=== PATIENT | female | born 1990 ===

== ENCOUNTER 2021-07-03 17:27 | Outpatient (REF) | payer BC, SELFPAY | END 2021-07-03 17:28 | disposition home or self-care (01) | LOC: HO.LNP 17:27 | PROVIDERS: Visit Provider Nurse Practitioner Family | DX: R10.2 Pelvic and perineal pain (principal); R10.9 Unspecified abdominal pain | CPT/HCPCS: 87086 ==

== ENCOUNTER 2021-07-05 16:59 | Outpatient (REF) | payer BC, SELFPAY ==
[2021-07-05 17:15] LABS: MANUAL DIFF FLAG NO
[2021-07-05 17:42] LABS: Basophils Percent Auto 0.4 % (0-2); Eosinophils Absolute Auto 0.2 X10*3/uL (0.0-0.4); Eosinophils Percent Auto 2.2 % (0-4); Hemoglobin 13.5 g/dl (12.0-16.0); Imm Gran Abs Auto 0.01 X10*3/uL (0.00-0.03); Imm Gran Pct Auto 0.1 % (0.0-0.4); Lymphocytes Absolute Auto 3.6 X10*3/uL (1.2-4.9); Lymphocytes Percent Auto 47.6 % (20-40); Mean Corpuscular HGB Conc 33.8 g/dl (31.0-35.0); Mean Corpuscular Hemoglobin 31.9 pg (27.0-33.0); Mean Corpuscular Volume 94.6 fL (80.0-98.0); Mean Platelet Volume 10.9 fL (9.4-12.3); Monocytes Absolute Auto 0.6 X10*3/uL (0.1-1.2); Neutrophils Absolute Auto 3.2 x10*3/uL (2.0-8.3); Neutrophils Percent Auto 41.7 % (45-73); Platelet Count 248 X10*3/uL (160-400); Red Blood Count 4.23 X10*6/uL (4.20-5.50); Red Cell Distribution Width 12.1 % (11.0-16.0); White Blood Count 7.6 X10*3/uL (4.8-10.8)
[2021-07-05 18:14] LABS: Alanine Aminotransferase 19 U/L (0-31); Alkaline Phosphatase 69 U/L (39-117); Anion Gap 9 (12-20); Aspartate Amino Transferase 15 U/L (5-31); Bilirubin Total 0.5 mg/dL (0.0-1.0); Blood Urea Nitrogen 13 mg/dL (9-16); Calcium 9.6 mg/dL (8.4-10.2); Carbon Dioxide 28 mmol/L (22-29); Chloride 105 mmol/L (96-108); Estimated Glomerular Filt Rate > 60; Glucose Random 98 mg/dL (60-115); Lipase 15 U/L (8-78); Potassium 4.7 mmol/L (3.3-5.1); Sodium 137 mmol/L (135-145); Total Protein 6.9 g/dL (6.5-8.0)
[2021-07-05 18:25] LABS: TSH reflex Free T4 1.18 uIU/mL (0.32-4.0)
== END 2021-07-05 17:00 | disposition home or self-care (01) ==
LOC: HO.LAB 16:59
PROVIDERS: PCP Internal Medicine; Visit Provider Nurse Practitioner Family
DX: R10.9 Unspecified abdominal pain (principal); Z13.29 Encounter for screening for other suspected endocrine disorder
CPT/HCPCS: 36415; 80053; 83690; 84443; 85025

== ENCOUNTER 2021-08-01 14:42 | Outpatient (REF) | payer BC, SELFPAY | END 2021-08-01 14:43 | disposition home or self-care (01) | LOC: HO.LAB 14:42 | PROVIDERS: PCP Internal Medicine; Visit Provider Nurse Practitioner Family | DX: Z13.89 Encounter for screening for other disorder (principal) | CPT/HCPCS: 87086 ==

== ENCOUNTER 2021-08-07 09:03 | Outpatient (REF) | payer BC, SELFPAY ==
--- NOTE | ~2021-08-07 | US_ITS ---
EXAMINATION: US RETROPERITONEAL LIMITED (RENAL ONLY) CLINICAL INFORMATION: Left lateral abdominal pain, history of kidney stones. COMPARISON: CT abdomen and pelvis with contrast 03/09/2016. TECHNIQUE: Real-time imaging of the kidneys. FINDINGS: RIGHT KIDNEY: 9.7 x 3.7 x 5.2 cm (SAG x AP x TRV). The kidney is normal in size, contour, and echogenicity. Renal cortical thickness is normal. No calculi or focal parenchymal lesions. No hydronephrosis. LEFT KIDNEY: 10.9 x 5.8 x 4.6 cm (SAG x AP x TRV). The kidney is normal in size, contour, and echogenicity. Renal cortical thickness is normal. No focal parenchymal lesions or hydronephrosis. There is a 0.3 cm calculus in the lower pole and a 0.3 cm calculus in the lower pole. US/US renal BI IMPRESSION: Nonobstructive 0.3 cm calculi in the left kidney.
--- NOTE | ~2021-08-07 | US_ITS ---
EXAMINATION: US PELVIS CLINICAL INFORMATION: Pelvic and perineal pain. LMP 08/01/2021. COMPARISON: CT abdomen/pelvis dated from 03/09/2016. TECHNIQUE: Ultrasound of the pelvis is performed using both transabdominal and transvaginal transducers along with Doppler. Transvaginal imaging is performed due to inadequate visualization transabdominally. FINDINGS: Uterus: The uterus is anteverted and measures 9.1 x 5.0 x 5.9 cm. Small nabothian cysts overlie the cervix. The double wall endometrial thickness is 4 mm. The uterus is smooth in contour and has normal myometrial echogenicity. No visible fibroid. Adnexa: Both ovaries are visualized. There is normal color flow to the adnexa. There is no ovarian torsion. There is no pelvic ascites or fluid collection. Right ovary measures 3.8 x 2.2 x 1.9 cm. There is a 1.4 cm simple cyst for which no imaging follow-up is recommended. Left ovary measures 2.2 x 1.6 x 1.4 cm. US/US pelvic and transvaginal IMPRESSION: No acute sonographic abnormalities to explain the patient's symptoms. If these persist, correlation with a different imaging modality such as CT or MR is recommended.
== END 2021-08-07 09:04 | disposition home or self-care (01) ==
LOC: HO.HMGCX 09:03
PROVIDERS: PCP Internal Medicine; Visit Provider Nurse Practitioner Family
DX: R10.2 Pelvic and perineal pain (principal); Z87.442 Personal history of urinary calculi
CPT/HCPCS: 76775; 76830; 76856

== ENCOUNTER 2022-03-05 04:30 | Emergency (ER) | payer BC, SELFPAY ==
--- NOTE | ~2022-03-05 | XR_ITS ---
EXAMINATION: XR ABDOMEN KUB CLINICAL INDICATION: Flank pain COMPARISON: Previous CT of the abdomen and pelvis February 2016 TECHNIQUE: AP view of the abdomen. FINDINGS: 2 mm density projecting over the lower pole of the left kidney probably representing a stone. Multiple bilateral pelvic calcifications largest measuring 3 mm probably representing calcified phleboliths. Normal bowel gas pattern. Bony structures are unremarkable. XR/XR KUB IMPRESSION: Small left lower pole renal stone.
[2022-03-05 04:36] VITALS: BP 109/72; PULSE 97; RESP 18; TEMP 36.7; O2SAT 97; BMI 24.0
[2022-03-05 05:07] LABS: Hematocrit 43.7 % (37.0-47.0); Hemoglobin 14.8 g/dl (12.0-16.0); Mean Corpuscular HGB Conc 33.9 g/dl (31.0-35.0); Mean Corpuscular Hemoglobin 31.4 pg (27.0-33.0); Mean Corpuscular Volume 92.8 fL (80.0-98.0); Mean Platelet Volume 9.8 fL (9.4-12.3); Platelet Count 317 X10*3/uL (160-400); Red Blood Count 4.71 X10*6/uL (4.20-5.50); Red Cell Distribution Width 12.2 % (11.0-16.0); White Blood Count 14.5 X10*3/uL (4.8-10.8)
[2022-03-05 05:26] LABS: Alanine Aminotransferase 25 U/L (0-31); Albumin Level 4.5 g/dL (3.5-5.0); Alkaline Phosphatase 86 U/L (39-117); Anion Gap 15 (12-20); Aspartate Amino Transferase 20 U/L (5-31); Blood Urea Nitrogen 18 mg/dL (9-16); Calcium 9.5 mg/dL (8.4-10.2); Carbon Dioxide 23 mmol/L (22-29); Chloride 105 mmol/L (96-108); Creatinine Clr Calc Pharmacy 84.5; Estimated Glomerular Filt Rate > 60; Glucose Random 126 mg/dL (60-115); Potassium 4.5 mmol/L (3.3-5.1); Sodium 138 mmol/L (135-145); Total Protein 7.8 g/dL (6.5-8.0)
[2022-03-05 05:44] LABS: Influenza A PCR NEGATIVE (Negative); Influenza B PCR NEGATIVE (Negative); Resp Syncy Virus RNA Qual PCR NEGATIVE (Negative); SARS COV2 PCR INHOUSE NEGATIVE (Negative)
[2022-03-05 07:53] LABS: HCG Quantitative < 2 mIU/mL
--- NOTE | 2022-03-05 09:28 | PC.NURSE ---
l abd and flank pain, hx colitis and kidney stones, ua collected, skin wpd, pain7/10, xray done
--- NOTE | 2022-03-05 09:40 | ED.NAVMDI ---
HPI - Nausea/Vomiting/Diarrhea General Chief complaint: Nausea/Vomiting/Diarrhea Stated complaint: dizzy, vomitting diarrhea, chills Time Seen by Provider: 03/05/22 08:57 Source: patient Mode of arrival: ambulatory History of Present Illness HPI Narrative: 31-year-old female who is currently menstruating and has a history of asthma presents with left flank pain and multiple episodes of nausea, vomiting, diarrhea and states that this did start after she ate some food but states that her significant other also ate the same meal. She otherwise denies any fever or chills and has a positive history of renal colic. Related Data Home Medications Medication Instructions Recorded Confirmed prenat.vits,justin,[id number] 1 tab PO DAILY 07/03/21 08/23/21 Previous Rx's Medication Instructions Recorded ketorolac 10 mg tablet 10 mg PO Q6H PRN pain 5 days #20 03/05/22 tabs ondansetron 4 mg disintegrating 4 mg PO Q8H PRN nausea and 03/05/22 tablet vomiting #10 tabs tamsulosin 0.4 mg capsule (Flomax) 0.4 mg PO BEDTIME #4 caps 03/05/22 Allergies Allergy/AdvReac Type Severity Reaction Status Date / Time No Known Allergies Allergy Verified 10/13/21 14:04 Review of Systems Review of Systems: Pertinent positives and negatives as stated in HPI. PMF Past Medical History Source: nursing notes reviewed Medical History History of nephrolithiasis Surgical History No pertinent past surgical history Social History Social History Housing: House Alcohol intake: never Patient Tobacco Use Status: Never used Tobacco e-Cigarette/Vaping Use: Never Used Second Hand Smoke Exposure: Yes Advance Directives: No Advance Directives Information Provided: Yes service: No Current occupational status: employed Cognitive needs: No Hearing needs: No Vision needs: No Physical Exam Vital Signs: Vital Signs: Last Vital Signs Temp 98.0 F 03/05/22 04:36 Pulse 97 03/05/22 04:36 Resp 18 03/05/22 04:36 BP 109/72 03/05/22 04:36 Pulse Ox 97 03/05/22 04:36 O2 Del Method 03/05/22 04:36 BMI result Body Mass Index 24.0 VITAL SIGNS: Reviewed. GENERAL: Well developed, well nourished, in no acute distress. HEAD: Normocephalic/atraumatic EYES: PERRLA, EOMI EARS: Ext canals without abnormality OROPHARYNX: no oral lesions noted, posterior pharynx clear LUNGS: Normal breath sounds. No adventitious sounds or accessory muscle use. SpO2<97> CARDIOVASCULAR: Regular rate and rhythm without noted murmurs ABDOMEN: Soft, non-tender, non-distended with bowel sounds, left CVA tenderness MUSCULOSKELETAL: No tenderness, deformities, or effusions noted on gross inspection. EXTREMITIES: No cyanosis, clubbing or edema. SKIN: Inspection of the skin reveals no rashes NEUROLOGIC: Alert and oriented x 4. Strength and sensation to light touch were grossly intact x 4. Course Course Course Narrative: I reviewed all laboratory investigations and although patient has a leukocytosis this is felt to be primarily due stress/reactive response with the vomiting. Patient is not febrile, urine does not appear to be infected in his instead reflective of current menstrual bleeding. And on re-evaluation patient is feeling better although she states she is tired due to her symptoms. She states her pain has significantly improved after the medication she received and the IV fluids that were ordered for this patient have completed. Patient is tolerating oral intake. Medications Administered Discontinued Medications Generic Name Dose Route Start Last Admin Trade Name Freq PRN Reason Stop Dose Admin Acetaminophen 975 mg 03/05/22 09:39 03/05/22 09:54 Acetaminophen 325 Mg Tablet PO 03/05/22 09:40 975 mg ONCE ONE Administration Sodium Chloride 1,000 mls @ 999 mls/hr 03/05/22 09:45 03/05/22 09:54 Ns IV 03/05/22 10:45 999 mls/hr .Q1H1M TANYA Administration Ketorolac Tromethamine 15 mg 03/05/22 09:41 03/05/22 09:54 Ketorolac Tromethamine 30 Mg/Ml Vial IVPUSH 03/05/22 09:42 15 mg ONCE ONE Administration Ondansetron HCl 4 mg 03/05/22 09:41 03/05/22 09:54 Ondansetron Hcl 4 Mg/2 Ml Vial IVPUSH 03/05/22 09:42 4 mg ONCE ONE Administration Medical Decision Making Medical Decision Making [facility] Narrative: 31-year-old female with multiple episodes of nausea, vomiting, diarrhea as well as left flank/CVA pain and no urinary symptoms. Differential Diagnosis Differential Diagnoses: The differential diagnosis associated with the presentation includes Food poisoning, gastroenteritis, renal colic, pyelonephritis, Lab Data [facility] Lab Attestation statement: I reviewed the patient's lab results. Please see the course Section for discussion Result Diagrams: 03/05/22 05:02 03/05/22 05:02 Labs: Lab Results 03/05/22 03/05/22 03/05/22 Range/Units 05:00 05:02 05:02 WBC 14.5 H (4.8-10.8) X10*3/uL RBC 4.71 (4.20-5.50) X10*6/uL Hgb 14.8 (12.0-16.0) g/dl Hct 43.7 (37.0-47.0) % MCV 92.8 (80.0-98.0) fL MCH 31.4 (27.0-33.0) pg MCHC 33.9 (31.0-35.0) g/dl RDW 12.2 (11.0-16.0) % Plt Count 317 D (160-400) X10*3/uL MPV 9.8 (9.4-12.3) fL Absolute Nucleated RBC 0.000 (0.0-0.012) X10*3/uL Nucleated RBC % (auto) 0.0 (0.0-0.2) /100WBC Sodium 138 (135-145) mmol/L Potassium 4.5 (3.3-5.1) mmol/L Chloride 105 (96-108) mmol/L Carbon Dioxide 23 (22-29) mmol/L Anion Gap 15 (12-20) BUN 18 H (9-16) mg/dL Creatinine 0.78 (0.5-1.4) mg/dL Estim Creat Clear Calc 84.5 Estimated GFR > 60 Random Glucose 126 H (60-115) mg/dL Calcium 9.5 (8.4-10.2) mg/dL Total Bilirubin 1.0 (0.0-1.0) mg/dL AST 20 (5-31) U/L ALT 25 (0-31) U/L Alkaline Phosphatase 86 D (39-117) U/L Total Protein 7.8 (6.5-8.0) g/dL Albumin 4.5 (3.5-5.0) g/dL Beta HCG, Quant < 2 mIU/mL Urine Color Urine Appearance Urine pH (5.0-9.0) Ur Specific [place] (1.005-1.025) Urine Protein (Neg-Trace) mg/dL Urine Glucose (UA) (Negative) mg/dL Urine Ketones (Negative) mg/dL Urine Blood (Negative) Urine Nitrite (Negative) Ur Leukocyte Esterase (Negative) Urine RBC (0-2) /HPF Urine WBC (0-5) /HPF Ur Squamous Epith Cells (0-2) /HPF Urine Bacteria (None Seen) Hyaline Casts (0-2) /LPF Influenza Type A (PCR) NEGATIVE (Negative) Influenza Type B (PCR) NEGATIVE (Negative) RSV RNA Qual (PCR) NEGATIVE (Negative) SARS-CoV-2 RNA (RT-PCR) NEGATIVE (Negative) 03/05/22 Range/Units 09:43 WBC (4.8-10.8) X10*3/uL RBC (4.20-5.50) X10*6/uL Hgb (12.0-16.0) g/dl Hct (37.0-47.0) % MCV (80.0-98.0) fL MCH (27.0-33.0) pg MCHC (31.0-35.0) g/dl RDW (11.0-16.0) % Plt Count (160-400) X10*3/uL MPV (9.4-12.3) fL Absolute Nucleated RBC (0.0-0.012) X10*3/uL Nucleated RBC % (auto) (0.0-0.2) /100WBC Sodium (135-145) mmol/L Potassium (3.3-5.1) mmol/L Chloride (96-108) mmol/L Carbon Dioxide (22-29) mmol/L Anion Gap (12-20) BUN (9-16) mg/dL Creatinine (0.5-1.4) mg/dL Estim Creat Clear Calc Estimated GFR Random Glucose (60-115) mg/dL Calcium (8.4-10.2) mg/dL Total Bilirubin (0.0-1.0) mg/dL AST (5-31) U/L ALT (0-31) U/L Alkaline Phosphatase (39-117) U/L Total Protein (6.5-8.0) g/dL Albumin (3.5-5.0) g/dL Beta HCG, Quant mIU/mL Urine Color Yellow Urine Appearance Clear Urine pH 6.0 (5.0-9.0) Ur Specific [place] >= 1.030 H (1.005-1.025) Urine Protein Trace (Neg-Trace) mg/dL Urine Glucose (UA) Negative (Negative) mg/dL Urine Ketones 40 (Negative) mg/dL Urine Blood Moderate (2+) H (Negative) Urine Nitrite Negative (Negative) Ur Leukocyte Esterase Small (1+) H (Negative) Urine RBC 3-5 H (0-2) /HPF Urine WBC 11-20 H (0-5) /HPF Ur Squamous Epith Cells 6-10 (0-2) /HPF Urine Bacteria 3+ (None Seen) Hyaline Casts 0-2 (0-2) /LPF Influenza Type A (PCR) (Negative) Influenza Type B (PCR) (Negative) RSV RNA Qual (PCR) (Negative) SARS-CoV-2 RNA (RT-PCR) (Negative) Radiology Impression Radiologist Impression: My interpretation is in agreement with radiology impression of imaging studies. External Record Review External record reviewed: Outpatient record Discharge Plan Discharge Clinical Impression: Renal colic, Dehydration Patient Disposition: Home, Self-Care Instructions: Dehydration (ED), Renal Colic (ED) Additional Instructions: 1. Resume all home medications as prescribed. Continue to drink plenty of water. And avoid all caffeinated and carbonated beverages. 2. Tylenol 1000 g, orally, every 6 hours as needed for pain control. Do not exceed 4000 mg within 24 hours. 3. I have given you a referral follow-up with urology. 4. Follow-up with primary care provider in the next 2-3 days for re-evaluation and further outpatient management. Return to the emergency room for any worsening of symptoms. Prescriptions: New ondansetron 4 mg tablet,disintegrating 4 mg PO Q8H PRN (Reason: nausea and vomiting) Qty: 10 0RF tamsulosin [Flomax] 0.4 mg capsule 0.4 mg PO BEDTIME Qty: 4 0RF ketorolac 10 mg tablet 10 mg PO Q6H PRN (Reason: pain) 5 Days Qty: 20 0RF Rx Instructions: Patient received Toradol in the emergency room. No Action prenat.vits,justin,[id number] Tablet 1 tab PO DAILY Referrals: Tavo Armendariz MD [Primary Care Provider] - Annette Walters MD [Physician] - (History renal colic, stone on left via KUB, pain and nausea/vomiting resolved and sent home on analgesics and Flomax.) Stand Alone Forms: Work/School Release
[2022-03-05 09:53] LABS: Appearance Urine Clear; Color Urine Yellow; Glucose Urine UA Negative (Negative); Leukocyte Esterase Urine Small (1+) (Negative); Nitrite Urine Negative (Negative); Specific Gravity - Urine >= 1.030 (1.005-1.025); UMIC TRIGGER UACC YES; Urine Blood Moderate (2+) (Negative); Urine Ketones 40 mg/dL (Negative); Urine Protein Trace mg/dL (Neg-Trace)
[2022-03-05] MEDS: Ketorolac Tromethamine 30 MG/ML VIAL 15 MG IVPUSH (09:54)
[2022-03-05] MEDS: ondansetron HCL 4 MG/2 ML VIAL IVPUSH (09:54)
[2022-03-05] MEDS: Acetaminophen 325 MG TABLET 975 MG PO (09:54)
[2022-03-05] MEDS: 0.9 % Sodium Chloride 1,000 ML 999 ML IV (09:54)
[2022-03-05 10:02] LABS: Bacteria Urine 3+ (None Seen); Hyaline Casts Urine 0-2 /LPF (0-2); UACC Culture Trigger YES
[2022-03-05 11:43] VITALS: BP 95/46; PULSE 94; RESP 16; O2SAT 100
== END 2022-03-05 11:44 | disposition home or self-care (01) ==
PROVIDERS: Emergency Provider Student in an Organized Health Care Education/Training Program; PCP Internal Medicine
DX: E86.0 Dehydration (principal); R19.7 Diarrhea, unspecified; R42 Dizziness and giddiness; N23 Unspecified renal colic; Z20.822 Contact with and (suspected) exposure to COVID-19; Z79.899 Other long term (current) drug therapy
CPT/HCPCS: 0241U; 74018; 80053; 81001; 84702; 85027; 87086; 96374; 96375; 99284; J1885; J2405

== ENCOUNTER 2022-03-19 14:47 | Outpatient (REF) | payer BC, SELFPAY ==
--- NOTE | ~2022-03-19 | US_ITS ---
EXAMINATION: US RETROPERITONEAL LIMITED (RENAL ONLY) CLINICAL INFORMATION: Renal stones. COMPARISON: X-ray KUB 03/05/2022. Ultrasound renal 08/07/2021. CT abdomen pelvis 03/09/2016. TECHNIQUE: Real-time imaging of the kidneys. FINDINGS: RIGHT KIDNEY: 9.9 x 4.1 x 5.6 cm (SAG x AP x TRV). The kidney is normal in size, contour, and echogenicity. Renal cortical thickness is normal. No calculi or focal parenchymal lesions. No hydronephrosis. LEFT KIDNEY: 9.9 x 5.8 x 4.5 cm (SAG x AP x TRV). The kidney is normal in size, contour, and echogenicity. Renal cortical thickness is normal. No focal parenchymal lesions or hydronephrosis. Stable nonobstructing 3 mm low pole stone. US/US renal BI IMPRESSION: Stable nonobstructing 3 mm left lower pole renal stone.
== END 2022-03-19 14:48 | disposition home or self-care (01) ==
LOC: HO.HMGCX 14:47
PROVIDERS: PCP Internal Medicine; Visit Provider Urology
DX: Z13.89 Encounter for screening for other disorder (principal)
CPT/HCPCS: 76775

== ENCOUNTER → 2022-04-02 13:44 | Outpatient (BNVA) | payer BC, SELFPAY | PROVIDERS: PCP Internal Medicine; Visit Provider Nurse Practitioner Family | DX: Z13.89 Encounter for screening for other disorder (principal) ==

== ENCOUNTER 2022-09-11 10:11 | Outpatient (REF) | payer BC, SELFPAY ==
--- NOTE | ~2022-09-11 | US_ITS ---
EXAMINATION: US RETROPERITONEAL LIMITED (RENAL ONLY) CLINICAL INFORMATION: Calculus of kidney. COMPARISON: Renal ultrasound 03/19/2022 and 08/07/2021. X-ray abdomen KUB 03/05/2022. CT abdomen and pelvis 03/09/2016. TECHNIQUE: Real-time imaging of the kidneys. Limited visualization due to bowel gas and body habitus. FINDINGS: RIGHT KIDNEY: 9.9 x 4.2 x 6.0 cm (SAG x AP x TRV). No hydronephrosis. No renal calculi. Limited visualization. Renal cortical thickness is normal. LEFT KIDNEY: 10.5 x 5.4 x 4.8 cm (SAG x AP x TRV). No hydronephrosis. Limited visualization. 0.3 cm calculus lower pole left kidney. Renal cortical thickness is normal. US/US renal BI IMPRESSION: Stable 3 mm nonobstructing calculus lower pole left kidney. No hydronephrosis.
--- NOTE | ~2022-09-11 | XR_ITS ---
EXAMINATION: XR WRIST, LEFT CLINICAL INFORMATION: Pain. COMPARISON: None available. TECHNIQUE: PA, lateral, and oblique views of the left wrist. FINDINGS: There is foreshortening of the fifth and, to a lesser extent fourth metacarpal bones. The proximal and distal carpal rows are intact. There is a neutral ulnar variance. No fracture, dislocation or unusual degenerative change is seen. There is no abnormal bone erosion. No focal soft tissue swelling, gas or foreign body is seen. XR/XR wrist LT min 3V IMPRESSION: 1. No fracture, dislocation or unusual degenerative change is seen. 2. 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 This can be idiopathic and further etiologies may include prior infection, trauma, pseudohypoparathyroidism, pseudopseudohypoparathyroidism and Guillen's syndrome.
== END 2022-09-11 10:12 | disposition home or self-care (01) ==
LOC: HO.HMGCX 10:11
PROVIDERS: Absent Provider Internal Medicine; PCP Internal Medicine; Visit Provider Nurse Practitioner Family
DX: Z00.00 Encounter for general adult medical examination without abnormal findings (principal); E78.00 Pure hypercholesterolemia, unspecified; R11.0 Nausea; N92.6 Irregular menstruation, unspecified; N20.0 Calculus of kidney; R30.0 Dysuria; M25.532 Pain in left wrist; E55.9 Vitamin D deficiency, unspecified
CPT/HCPCS: 36415; 73110; 76775; 80053; 80061; 81001; 82306; 84443; 84702; 85025; 87086

== ENCOUNTER 2022-09-30 15:03 | Outpatient (AMB) | payer BC, SELFPAY ==
--- NOTE | 2022-09-30 15:21 | A.OFFVIS_ITS ---
Intake Intake Visit Reasons: 6m follow up/US(set) Intake Note: Patient presents for follow up kidney stone/ultrasound (imaging 09/18) Urology Medications: none Blood Thinner: none Traveling Construction Superintendent Required: No Accompanied by: Self / Same As Patient Allergies No Known Allergies Allergy (Verified 09/30/22 19:54) Medication List - Last Reconciled 09/30/22 by CHARO Cespedes pyridoxine (vitamin B6) 100 mg PO DAILY 90 days HPI HPI Comments History of Present Illness Details Tata is a pleasant 31-year-old female patient of . She presents to the office today for follow-up regarding her nephrolithiasis. When asked patient reports to be doing well. Recent renal imaging reviewed with the patient today. Stable nonobstructing 3 mm left lower pole renal stone. Patient denies urinary issues or concerns at this time. Patient denies hematuria, flank pain, pain, fever, and or chills. Discussed and encouraged to continue drinking adequate amount of daily fluid intake. Discussed adding 1 oz of lemon juice to water. In office urinalysis results reviewed with the patient today. Patient reports to be following up with nurse gynecology regarding intermittent left lower abdominal pain. She otherwise offers no issues or concerns at this time. [facility] Medical History History of nephrolithiasis Surgical History No pertinent past surgical history Social History Housing: House Alcohol intake: never Patient Tobacco Use Status: Never used Tobacco e-Cigarette/Vaping Use: Never Used Second Hand Smoke Exposure: Yes service: No Current occupational status: employed Cognitive needs: No Hearing needs: No Vision needs: No Review of Systems Const All systems reviewed & are unremarkable except as noted in HPI and below Reports as per HPI Eyes Reports no additional complaints ENT Reports no additional complaints Card Reports no additional complaints Resp Reports no additional complaints GI Reports no additional complaints Reports as per HPI Musc Reports no additional complaints Neuro Reports no additional complaints Psych Reports no additional complaints Endo Reports no additional complaints Trevor/Lymph Reports no additional complaints Aller/Immun Reports no additional complaints Physical Exam Const General: cooperative, healthy appearing, comfortable, no acute distress, well developed, alert and awake Nutritional Appearance: average body habitus Orientation/consciousness: patient oriented x3 Limitations: no limitations HEENT Head: Yes normal to inspection, Yes normocephalic and Yes atraumatic Ears: hearing grossly normal bilaterally Eyes General: appearance normal, both eyes and all related structures Neck Neck: Yes normal visual inspection and Yes trachea midline Chest Chest palpation & inspection: normal inspection of the chest Resp Effort & Inspection: normal respiratory effort and able to speak in complete sentences Cardio Rate: regular rate GI Inspection: Yes normal to inspection General: Yes no CVA tenderness Back/Spine/Pelvis Back: no CVA tenderness Cervical Spine: normal cervical lordosis Skin General skin exam: no rashes or lesions noted Neuro General: patient oriented x3 Extrem General: Yes normal to inspection and Yes full ROM Psych Appearance: grossly normal Mental Status: mental status grossly normal Speech and movement: Normal speech and movement present and Clear speech present Affect: normal affect Attitude: cooperative Thought process: Normal thought process present Thought content: Normal thought content present Insight: Good insight present (Psych) Judgement: Good judgement present (Psych) Results AMB Urinalysis, Automated UA Leukoctes 500 Srikanth/uL Last Edit by [email or web address] on 09/30/22 15:51 UA Nitrite Last Edit by [email or web address] on 09/30/22 15:51 UA Urobilinogen 0.2 mg/dL Last Edit by [email or web address] on 09/30/22 15:51 UA Protein 0 mg/dL Last Edit by [email or web address] on 09/30/22 15:51 UA pH 6.0 Last Edit by [email or web address] on 09/30/22 15:51 UA Blood 0 Shaheen/uL Last Edit by [email or web address] on 09/30/22 15:51 UA Specific [place] 1.025 Last Edit by [email or web address] on 09/30/22 15:51 UA Ketone Negative Last Edit by [email or web address] on 09/30/22 15:51 UA Bilirubin 0 mg/dL Last Edit by [email or web address] on 09/30/22 15:51 UA Glucose 0 mg/dL Last Edit by [email or web address] on 09/30/22 15:51 Results Reviewed Results Reviewed: Laboratory Last Values Urine pH (Auto) 6.0 09/30/22 15:22 Specific [place] (Auto) 1.025 09/30/22 15:22 Urine Protein (Auto) 0 mg/dL 09/30/22 15:22 Glucose (UA)(Auto) 0 mg/dL 09/30/22 15:22 Urine Ketones (Auto) Negative 09/30/22 15:22 Urine Blood (Auto) 0 Shaheen/uL 09/30/22 15:22 Urine Bilirubin (Auto) 0 mg/dL 09/30/22 15:22 Urine Urobilinogen (Auto) 0.2 mg/dL 09/30/22 15:22 Leukocyte Esterase (Auto) 500 Srikanth/uL 09/30/22 15:22 Date of Service: 09/11/22 EXAMINATION: US RETROPERITONEAL LIMITED (RENAL ONLY) FINDINGS: RIGHT KIDNEY: 9.9 x 4.2 x 6.0 cm (SAG x AP x TRV). No hydronephrosis. No renal calculi. Limited visualization. Renal cortical thickness is normal. LEFT KIDNEY: 10.5 x 5.4 x 4.8 cm (SAG x AP x TRV). No hydronephrosis. Limited visualization. 0.3 cm calculus lower pole left kidney. Renal cortical thickness is normal. IMPRESSION: Stable 3 mm nonobstructing calculus lower pole left kidney. No hydronephrosis. Assessment & Plan Assessment & Plan (1) Renal calculi: Code(s): N20.0 - Calculus of kidney Plan In office urinalysis results reviewed with the patient today; as noted above. Recent renal imaging results reviewed with the patient today; as noted above. Patient reports to be happy with current voiding parameters. Patient denies any urological issues or concerns at this time. Start vitamin B6 as discussed and prescribed. Educated, instructed, and encouraged on the importance of drinking plenty of water daily. Discussed continuation of adding 1 oz of lemon juice to water daily. Renal ultrasound in 1 year. Follow-up in 1 year with imaging to be completed prior; or sooner with any issues, concerns, and or questions. Orders: Orders US renal BI 364 Days N20.0 - Calculus of kidney AMB Urinalysis Automated Today Z13.9 - Encounter for screening, unspecified Medications: New pyridoxine (vitamin B6) 100 mg PO DAILY 90 tabs 1RF 90 days N20.0 - Calculus of kidney Patient Instructions: The patient had an opportunity to ask questions regarding the treatment plan. All questions were answered. Physical exam, labs, and imaging were discussed and reviewed in detail. As well as risks, benefits, and discussion of treatment choices. No major barriers to understanding were identified. The patient expressed understanding and agreement with the above treatment plan. The patient was made aware they should contact our office by phone for worsening of their current condition, the appearance of new symptoms, or with any questions or concerns. Compliance is encouraged with any medications and follow up testing that is ordered. It is a privilege to be allowed the opportunity to participate in? your urological care.? Again, if you have any questions or concerns If you have any questions or concerns please do not hesitate to contact me. The office is [phone]. This note is constructed using voice recognition software. While every effort has been made to ensure accuracy gridcap machine operator errors may have been included. Yours sincerely, CHARO Cespedes Coding Level of Care Code Est Pt Level 4 (09225) Diagnoses Renal calculi N20.0
== END 2022-09-30 16:04 | disposition home or self-care (01) ==
PROVIDERS: Visit Provider Nurse Practitioner Family
DX: N20.0 Calculus of kidney (principal)
CPT/HCPCS: 99214

== ENCOUNTER → 2022-09-30 15:03 | Outpatient (BNVA) | payer BC, SELFPAY | PROVIDERS: Visit Provider Nurse Practitioner Family ==

== ENCOUNTER 2022-11-04 13:47 | Outpatient (REF) | payer BC, SELFPAY ==
--- NOTE | ~2022-11-04 | XR_ITS ---
EXAMINATION: XR HAND, LEFT CLINICAL INFORMATION: Pain in left hand. COMPARISON: Radiographs of the wrist from 09/11/2022 TECHNIQUE: PA, lateral, and oblique views of the left hand. FINDINGS: The bones have normal alignment within the hand or wrist. The joint spaces are maintained. No acute fracture, subluxation or focal soft tissue swelling. No erosions, periostitis or dystrophic calcifications. Again noted is a chronically shortened fifth metacarpal, a nonspecific finding that can be seen as a sequela of remote trauma, although differential diagnosis includes a variety of disorders, e.g., Guillen's syndrome. XR/XR hand LT min 3V IMPRESSION: * No acute osseous injury in the left hand or wrist. No specific source of pain is identified. * No evidence of an inflammatory arthropathy. 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
== END 2022-11-04 13:48 | disposition home or self-care (01) ==
LOC: HO.HOSX 13:47
PROVIDERS: Visit Provider Orthopaedic Surgery
DX: M79.642 Pain in left hand (principal)
CPT/HCPCS: 73130

== ENCOUNTER 2022-11-05 14:14 | Outpatient (AMB) | payer BC, SELFPAY ==
[2022-11-05 14:39] VITALS: BMI 23.8
--- NOTE | 2022-11-05 14:39 | MHC.OFFVIS ---
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 States she is experiencing pain when applying pressure to her hand/wrist for the last 5-6 months. No injury she van recall. States she saw her PCP about 1 month ago who ordered xrays. Currently states her pain has been constant and affects her daily living even just going to the gym. At time she has a sharp pain in her dorsum aspect of wrist. Denies numbness, tingling , locking of finger or prior treatment. Allergies No Known Allergies Allergy (Verified 11/05/22 14:49) HPI KEY ACCOUNT MANAGER-left wrist pain HPI Details Tata is a 32 year old right hand dominant woman who presents to discuss her left wrist pain She complains of ~6 months left wrist pain with activity. She says this has worsened over the last month and is now felt constantly with daily activity. She says she feels limited in her ADLs due to this pain. Pushing up with her hand is particularly painful for her. She feels worsening pain when applying pressure to her wrist. At times she feels a sharp pain in the dorsal aspect of her wrist. She says at times she feels her wrist catches and she has to make her wrist click in order to continue moving it, this clicking relieves her pain temporarily. She denies any falls or known injury. She denies any numbness or tingling. 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 [facility] Medical History History of nephrolithiasis Surgical History No pertinent past surgical history Social History (Updated 11/05/22 @ 14:50 by Connie Weaver [facility]) Housing: House Alcohol intake: never Patient Tobacco Use Status: Never used Tobacco e-Cigarette/Vaping Use: Never Used Second Hand Smoke Exposure: Yes service: No Current occupational status: employed Current occupation: rt hand / banker Cognitive needs: No Hearing needs: No Vision needs: No Review of Systems Const All systems reviewed & are unremarkable except as noted in HPI and below Physical Exam Vital Signs: BMI result Body Mass Index 23.8 Const General: cooperative, healthy appearing and no acute distress Orientation/consciousness: patient oriented x3 HEENT Head: Yes normocephalic and Yes atraumatic Eyes EOM: EOMs intact bilaterally Resp Effort & Inspection: normal respiratory effort and able to speak in complete sentences Cardio Jugular venous distension: no JVD Skin General skin exam: turgor normal Rashes: no rashes Neuro General: patient oriented x3 Extrem Other: Evaluation of Left Upper Extremity: The patient is alert, oriented, and in no acute distress Neuro: Median, Ulnar, Radial nerves motor and sensory intact and sensation is normal to the tips of all digits Vascular: Cap refill brisk ROM: She can make a tight fist with good strength and no pain She extend all her digits and hold them extended against resistance without pain, all fingers tested She could actively extend her wrist against resistance with no pain When she brought her wrist into hyperextension she felt pain in the dorsal central aspect of her wrist Skin: No lacerations or abrasions. General: No Ecchymosis. No Erythema or evidence of infection. The distal radius DRUJ and distal ulna were all nontender. The DRUJ was stable on exam and she had no pain with full prono-supination. Wrist flexion extension was essentially symmetrical though she did have some discomfort with full extension of the wrist as noted above. She had mild tenderness over the dorsal central aspect of the wrist, directly over the 4th dorsal compartment tendons. However, she had no tenderness over the tendons proximal or distal to this area. No masses or dorsal wrist ganglion were appreciated. Radiographs: 3 views of the left wrist from 09/11/22 and of the hand from today were reviewed by me today in clinic. They show no fractures or dislocations There is significant shortening of the 5th metacarpal, ~ half the length of the index finger metacarpal. Fourth metacarpal was also somewhat shortened. The middle finger metacarpal appears somewhat shorter than the index finger. The index finger appears to be the longest metacarpal. Psych Appearance: grossly normal Affect: normal affect Attitude: cooperative Assessment & Plan Assessment & Plan (1) Left wrist pain: Code(s): M25.532 - Pain in left wrist Plan Assessment & Plan: 1. Left dorsal wrist pain In the dorsal central aspect I educated her about this condition No known injury. Her pain has persisted for ~6 months at this point without improvement Her pain is worse with heavy lifting activities or when in push-up position. She feels limited in her ADLs, however her ROM is good and without limitation I think an MRI to assess her wrist would be appropriate, and she wished to have an MRI. I ordered an MRI of her left wrist, she will follow up when completed for review This should be a 30 minute appointment Scribed for Aracelis Banks MD by Afshin Syed, director medical safety, on 11/05/22 at 3:05 PM, EST. Orders: Orders XR hand LT min 3V Today M79.642 - Pain in left hand Coding Level of Care Code New Pt Level 3 (01776) Diagnoses Left wrist pain M25.532
== END 2022-11-05 15:21 | disposition home or self-care (01) ==
PROVIDERS: PCP Internal Medicine; Visit Provider Orthopaedic Surgery
DX: M25.532 Pain in left wrist (principal)
CPT/HCPCS: 99204

== ENCOUNTER → 2022-11-05 14:14 | Outpatient (BNVA) | payer BC, SELFPAY | PROVIDERS: PCP Internal Medicine; Visit Provider Orthopaedic Surgery | DX: M79.642 Pain in left hand (principal) ==

== ENCOUNTER 2022-11-30 15:20 | Outpatient (REF) | payer BC, SELFPAY ==
--- NOTE | ~2022-11-30 | MR_ITS ---
EXAMINATION: MR WRIST WITHOUT CONTRAST, LEFT CLINICAL INFORMATION: Left wrist pain. Posterior pain with extension. COMPARISON: Left hand radiographs dated 11/05/2022 and wrist radiographs dated 09/11/2022. TECHNIQUE: Multisequence MR imaging of the left wrist was obtained without contrast on a high-field strength scanner. FINDINGS: TRIANGULAR FIBROCARTILAGE: Attenuation through the radial aspect with a probable focal full-thickness defect measuring up to 0.2 cm in ML dimension. This is located approximately 0.1 cm from the distal radial insertion. The volar and dorsal radial ulnar ligaments remain intact. INTRINSIC LIGAMENTS: Intact. TENDONS/MEDIAN NERVE: Intact. ARTICULAR CARTILAGE/BONE: No acute fracture or dislocation. No concerning lytic or blastic osseous lesion. Intact articular cartilage. No marrow edema or evidence of acute injury. JOINT FLUID/SOFT TISSUES: Synovial recess versus ganglion cyst dorsal to the proximal aspect of the distal radial ulnar joint which measures up to 0.3 x 0.6 x 0.7 cm in greatest dimension. MR/MR wrist LT wo con IMPRESSION: 1. Attenuation through the radial aspect of the triangular fibrocartilage complex with a probable focal full-thickness defect measuring up to 0.2 cm in ML dimension. This is located approximately 0.1 cm from the distal radial insertion. The volar and dorsal radial ulnar ligaments remain intact. 2. Synovial recesses versus ganglion cyst dorsal to the proximal aspect of the distal radial ulnar joint measuring up to 0.7 cm.
== END 2022-11-30 15:21 | disposition home or self-care (01) ==
LOC: HO.MRI 15:20
PROVIDERS: PCP Internal Medicine; Visit Provider Orthopaedic Surgery
DX: M25.532 Pain in left wrist (principal)
CPT/HCPCS: 73221

== ENCOUNTER 2023-01-01 12:42 | Outpatient (AMB) | payer BC, SELFPAY ==
--- NOTE | 2023-01-01 13:08 | A.OFFVIS_ITS ---
Intake Vital Signs 01/01/23 13:10 Height 5 ft 1 in Weight 126 lb BMI 23.8 Intake Visit Reasons: OV-Mri results Intake Note: Tata 32 yr old female presents today for her MRI review of her left wrist. Allergies No Known Allergies Allergy (Verified 01/01/23 13:13) HPI OV-Mri results HPI Details Tata is a 32 year old right hand dominant woman who returns for an MRI review of her left dorsal wrist pain. She continues to complain of left dorsal wrist pain, particularly when placed in hyper extension and under a load. Pushing up with her hand is particularly painful for her. She feels worsening pain when applying pressure to her wrist. At times she feels a sharp pain in the dorsal aspect of her wrist. She says at times she feels her wrist catches and she has to make her wrist click in order to continue moving it, this clicking relieves her pain temporarily. She demonstrates the area of pain as being extending from just proximal to the metacarpal necks of the dorsal aspect of the hand across the dorsal aspect of the wrist She denies any falls or known injury. She denies any numbness or tingling. 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 [facility] Medical History History of nephrolithiasis Surgical History No pertinent past surgical history Social History Housing: House Alcohol intake: never Patient Tobacco Use Status: Never used Tobacco e-Cigarette/Vaping Use: Never Used Second Hand Smoke Exposure: Yes service: No Current occupational status: employed Current occupation: rt hand / banker Cognitive needs: No Hearing needs: No Vision needs: No Physical Exam Vital Signs: BMI result Body Mass Index 23.8 Const General: cooperative, healthy appearing and no acute distress Orientation/consciousness: patient oriented x3 HEENT Head: Yes normocephalic and Yes atraumatic Eyes EOM: EOMs intact bilaterally Resp Effort & Inspection: normal respiratory effort and able to speak in complete sentences Cardio Jugular venous distension: no JVD Skin General skin exam: turgor normal Rashes: no rashes Neuro General: patient oriented x3 Extrem Other: Evaluation of Left Upper Extremity: The patient is alert, oriented, and in no acute distress Neuro: Median, Ulnar, Radial nerves motor and sensory intact and sensation is normal to the tips of all digits Vascular: Cap refill brisk ROM: She can make a tight fist with good strength and no pain She extend all her digits and hold them extended against resistance without pain, all fingers tested She could actively extend her wrist against resistance with no pain When she brought her wrist into hyperextension and tried to push up from a chair, she felt pain in the dorsal central aspect of her wrist The distal radius DRUJ and distal ulna were all nontender. The DRUJ was stable on exam and she had no pain with full prono-supination. Wrist flexion extension was essentially symmetrical though she did have some discomfort with full extension of the wrist as noted above. She had mild tenderness over the dorsal central aspect of the wrist, directly over the 4th dorsal compartment tendons. However, she had no tenderness over the tendons proximal or distal to this area. No masses or dorsal wrist ganglion were appreciated. Specifically no dorsal ganglion was appreciated just proximal and dorsal to the DRUJ, we which is where we were seeing the small ganglion was on the MRI Left wrist MRI: IMPRESSION: 1. Attenuation through the radial aspect of the triangular fibrocartilage complex with a probable focal full-thickness defect measuring up to 0.2 cm in ML dimension. This is located approximately 0.1 cm from the distal radial insertion. The volar and dorsal radial ulnar ligaments remain intact. 2. Synovial recesses versus ganglion cyst dorsal to the proximal aspect of the distal radial ulnar joint measuring up to 0.7 cm. Lauro Thomason MD 12/02/22 Radiographs: 3 views of the left wrist from 09/11/22 and of the hand from 11/05/22 were reviewed by me today in clinic. They show no fractures or dislocations There is significant shortening of the 5th metacarpal, ~ half the length of the index finger metacarpal. Fourth metacarpal was also somewhat shortened. The middle finger metacarpal appears somewhat shorter than the index finger. The index finger appears to be the longest metacarpal. Psych Appearance: grossly normal Affect: normal affect Attitude: cooperative Assessment & Plan Assessment & Plan (1) Left wrist pain: Code(s): M25.532 - Pain in left wrist Plan Assessment & Plan: 1. Left dorsal wrist pain When placed in hyperextension and under load No operative indications found on MRI I educated her about this condition No known injury. Her pain has persisted for several years at this time I ordered OT hand therapy to work on stretching and strengthening exercises in hopes of alleviating her symptoms. She also complains of some new pain about the right lateral epicondyle, and hopefully OT will be able to help her with this She will follow up prn Scribed for Aracelis Banks MD by Afshin Syed, medical director of hospice, on 01/01/23 at 1:25 PM, EST. Orders: Orders OT Evaluation and Treatment Today M25.532 - Pain in left wrist Coding Level of Care Code Est Pt Level 4 (41972) Diagnoses Left wrist pain M25.532
[2023-01-01 13:10] VITALS: BMI 23.8
== END 2023-01-01 13:34 | disposition home or self-care (01) ==
PROVIDERS: PCP Internal Medicine; Visit Provider Orthopaedic Surgery
DX: M25.532 Pain in left wrist (principal)
CPT/HCPCS: 99213

== ENCOUNTER → 2023-01-01 12:42 | Outpatient (BNVA) | payer BC, SELFPAY | PROVIDERS: PCP Internal Medicine; Visit Provider Orthopaedic Surgery ==

== ENCOUNTER 2023-03-01 09:21 | Outpatient (AMB) | payer BC, SELFPAY ==
[2023-03-01 09:43] VITALS: BP 98/62; PULSE 63; TEMP 36.4; O2SAT 97
--- NOTE | 2023-03-01 09:43 | AM.OFFWIN_ITS ---
Intake Vital Signs 03/01/23 09:43 Height 5 ft 1 in BP 98/62 Blood Pressure Location Rt brachial Position Sitting Pulse 63 Pulse Source Pulse Oximeter Temp 97.6 F Temp Source Temporal Artery Scan Pulse Oximetry (%) 97 Oxygen Delivery Method Room Air Intake Visit Reasons: EP RT Ear pain (masked) Intake Note: pt is here for c/o right ear pain Patient Tobacco Use Status: Never used Tobacco Allergies No Known Allergies Allergy (Verified 03/01/23 09:44) Do you need a note to return to daycare/school/sports/work: Yes HPI HPI Comments History of Present Illness Details She presents to office with R ear pain Onset this am She denies other symptoms No trauma or injury / pain now; warm and painful to touch No drainage No fevers but felt warm 2-3 days ago She took vacicylovir for a herpes lesion yesterday on her lip and unsure if this helped Has hx of cold sores to lip PFSH Medical History History of nephrolithiasis Surgical History No pertinent past surgical history Social History Housing: House Alcohol intake: never Patient Tobacco Use Status: Never used Tobacco e-Cigarette/Vaping Use: Never Used Second Hand Smoke Exposure: Yes service: No Current occupational status: employed Current occupation: rt hand / banker Cognitive needs: No Hearing needs: No Vision needs: No Review of Systems Const Denies body aches, Denies chills and Denies fever(s) ENT Denies ear discharge, Reports otalgia, Denies sore throat and Reports other (lip lesions) Resp Denies cough Musc Denies back pain and Denies myalgias Skin/Breast Reports lesions, Reports new lesions and Reports sores Physical Exam Vital Signs: Last Vital Signs Temp 97.6 F 03/01/23 09:43 Pulse 63 03/01/23 09:43 BP 98/62 03/01/23 09:43 Pulse Ox 97 03/01/23 09:43 Oxygen Delivery Method Room Air 03/01/23 09:43 General: Non-toxic, NAD. Speaking full sentences. Skin: Warm dry throughout. 3-4 small erythematous vesicular lesions R upper lip. No drainage or surrounding erythema Eye: EOMI HENT: Airway patent. Uvula midline. No pharyngeal erythema or edema. No CAMP[facility] PRESIDENT. Bilateral canals clear. TM non-erythematous, non-bulging. No TM perforation or hemotympanum noted.Lymph: + R tonsillar lymphadenopathy present and tender. No pre or post auricular lymphdenopathy. Respiratory: No resp distress MSK: Full ROM extremities. Neurology: A/O. No aphasia or facial droop. Gait without abnormality Psych: Good mood and affect Assessment & Plan Assessment & Plan (1) Lymphadenopathy: Code(s): R59.1 - Generalized enlarged lymph nodes Plan: Patient seen and evaluated. No OM or OE No oral involvement + herpes which she is tx + lymph node pain due to herpes Warm compress and Motrin F/U with PCP Patient gave verbal understanding and had no additional questions or concerns at time of discharge All questions answered (2) Herpes simplex: Code(s): B00.9 - Herpesviral infection, unspecified Plan see above Coding Level of Care Code Est Pt Level 3 (97122) Diagnoses Lymphadenopathy R59.1 Herpes simplex B00.9
== END 2023-03-01 10:33 | disposition home or self-care (01) ==
PROVIDERS: PCP Internal Medicine; Visit Provider Physician Assistant
DX: R59.1 Generalized enlarged lymph nodes (principal); B00.9 Herpesviral infection, unspecified
CPT/HCPCS: 99213

== ENCOUNTER 2023-03-04 17:09 | Outpatient (AMB) | payer BC, SELFPAY ==
[2023-03-04 17:15] VITALS: BP 110/70; PULSE 71; O2SAT 99; BMI 24.6
--- NOTE | 2023-03-04 17:15 | MHC.PC.OV ---
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 Allergies No Known Allergies Allergy (Verified 03/04/23 19:47) Medication List - Last Reconciled 03/04/23 by Tavo Armendariz MD pyridoxine (vitamin B6) 100 mg PO DAILY 90 days Tobacco use date assessed: 03/04/23 Dental Screening Dental Screen Date: 03/04/23 Did you have a dental visit in the last 12 months?: Yes Did you have a dental problem in the last 6 months where you did not have access to dental care?: No Was dental information given to patient?: Patient has dentist HPI 6 month f/u HPI Details Patient comes in today for her follow up visit Has been experiencing recurrent right elbow pain for the past 1 month States that she does not recall any recent injury or trauma to her right elbow Adds that she continues to experience recurrent/frequent pain and discomfort over her left suprapubic area, especially when she is walking or moving around but states that the pain would also occur randomly, sometimes even when she is just sitting down States that according to her ballistic expert in [place], she has a cyst in her left ovary and she just had an abdominal and pelvic US done a few months ago on 11/20/2022 that supposedly revealed a couple of fibroids (?) - per patient, 1 of them supposedly disappeared and the other is still present at about 1 cm in size (?) Was reportedly advised by her ballistic expert to see her PCP about getting some other tests done to look into these further States that she feels okay otherwise She denies any headaches or dizziness Denies any chest pains, no shortness of breath No nausea/ vomiting, no abdominal pain No change in bowel habits noted States she has no dysuria or acute urinary symptoms Would like to know how she did on her labs done back in September 2022 [facility] Medical History (Updated 03/05/23 @ 00:37 by Tavo Armendariz MD) Pure hypercholesterolemia Suprapubic pain History of nephrolithiasis Surgical History No pertinent past surgical history Social History Housing: House Alcohol intake: never Patient Tobacco Use Status: Never used Tobacco e-Cigarette/Vaping Use: Never Used Second Hand Smoke Exposure: Yes service: No Current occupational status: employed Current occupation: rt hand / banker Cognitive needs: No Hearing needs: No Vision needs: No Questionnaire PHQ-9 Over the last 2 weeks, how often have you been bothered by any of the following problems? 1. Little interest or pleasure in doing things: not at all 2. Feeling down, depressed, or hopeless: not at all 3. Trouble falling or staying asleep, or sleeping too much: not at all 4. Feeling tired or having little energy: not at all 5. Poor appetite or overeating: not at all 6. Feeling bad about yourself - or that you are a failure or have let yourself or your family down: not at all 7. Trouble concentrating on things, such as reading the newspaper or watching television: not at all 8. Moving or speaking so slowly that other people could have noticed. Or the opposite - being so fidgety or restless that you have been moving around a lot more than usual: not at all 9. Thoughts that you would be better off or of hurting yourself in some way: not at all Total score: 0 Depression Screening Interpretation: Negative Depression Screening Done: Yes 60965 - PHQ-9 Billing: Yes Source: Developed by Drs. Roe Santiago, Pat Ontiveros, Fahad Nance and colleagues, with an educational george from [employer]. Thrive Questionnaire Date Thrive assessed: 03/04/23 I am a: Patient What is your living situation today?: I have a steady place to live Within the past 12 months, did the food you bought not last and you didn't have the money to get more?: Never true Within the past 12 months, did you worry whether your food would run out before you got money to buy more?: Never true Do you have trouble paying for medicines?: No Do you have trouble getting transportation to medical appointments?: No Do you have trouble paying your heating and electricity bill?: No Do you have trouble taking care of your child, family member or friend?: No Do you have trouble with day-to-day activities such as bathing, preparing meals, shopping, managing finances, etc.?: No Are you currently unemployed and looking for a job?: No Are you interested in more education?: No Please select the resources that you would like help with: None Currently or been in a relationship where the following occur: no concerns reported AUDIT C Alcohol Use Questionnaire (AUDIT-C) 1. How often do you have a drink containing alcohol?: Never 3. How often do you have six or more drinks on one occasion?: Never Total Score: 0 Score Reviewed/Action Taken: Yes EDGARDO-7 AMB Questionnaire EDGARDO-7 Date EDGARDO - 7 assessed: 03/04/23 Feeling nervous, anxious, or on edge: 0 = Not at all Not being able to stop or control worryin = Not at all Worrying too much about different things: 0 = Not at all Trouble relaxin = Not at all Being so restless that it is hard to sit still: 0 = Not at all Becoming easily annoyed or irritable: 0 = Not at all Feeling afraid as if something awful might happen: 0 = Not at all Total EDGARDO-7 score (0-4 normal; 5-9 mild; 10-14 moderate; 15-21 severe): 0 Source: Developed by Drs. Roe Santiago, Pat Ontiveros, Fahad Nance and colleagues, with an educational george from [employer]. EDGARDO-7 Assessment Billing EDGARDO-7 Assessment Tool: EDGARDO-7 Assessment 17450 Review of Systems Const Denies chills, Denies fatigue, Denies fever(s) and Denies headache(s) ENT Denies dysphagia, Denies dizziness, Denies otalgia, Denies headache(s), Denies neck pain, Denies odynophagia and Denies sore throat Card Denies chest pain, Denies palpitations and Denies dyspnea Resp Denies cough and Denies dyspnea GI Denies abdominal pain, Denies constipation, Denies dysphagia, Denies heartburn, Denies diarrhea, Denies nausea, Denies odynophagia and Denies vomiting Details: (+) recurrent pain over the left suprapubic area Denies difficulty voiding, Denies nocturia and Denies dysuria Musc Denies neck pain Skin/Breast Denies rash Neuro Denies dizziness and Denies headache(s) Endo Denies fatigue and Denies palpitations Physical exam (Primary Care) Vital Signs: Last Vital Signs Pulse 71 03/04/23 17:15 BP 110/70 03/04/23 17:15 Pulse Ox 99 03/04/23 17:15 Oxygen Delivery Method Room Air 03/04/23 17:15 BMI result Body Mass Index 24.6 Tobacco/Smoking Status: Tobacco use Status Tobacco use date assessed 03/04/23 03/04/23 17:19 Patient Tobacco Use Status Never used Tobacco 03/04/23 17:19 e-Cigarette/Vaping Use Never Used 03/04/23 17:19 PHQ-9: PHQ-9 Score PHQ-9: Total score 0 03/04/23 19:47 Depression Screening Interpretation: Negative Thrive Assessment: Date of Thrive Assessment Date Thrive assessed 03/04/23 03/04/23 17:19 Currently or been in a relationship where the following occur: no concerns reported Const General: no acute distress and alert HENMT Ears: TM's normal bilaterally and EAC's normal Throat: Yes posterior oropharynx normal and Yes tonsils normal (no TP congestion) Neck Neck: Yes no lymphadenopathy and Yes supple Thyroid: Thyroid normal Resp Auscultation: clear to auscultation bilaterally, no rales and no wheezes Cardio Rate: regular rate Rhythm: regular rhythm Heart sounds: no murmurs GI Palpation (GI): Soft to palpation, Tenderness to palpation present (GI) (mild, mainly over the left suprapubic area), no guarding, not rigid, No hepatosplenomegaly present, no masses and No Rebound tenderness present Auscultation: normal bowel sounds General: Yes no CVA tenderness Back/Spine/Pelvis Back: no CVA tenderness Thoracic/Lumbar Spine: thoracic and lumbar spine normal to inspection Skin Lesions: no lesions Rashes: no rashes Neuro General: moves all extremities, no focal motor deficits and CN's II-XI intact bilaterally Cognition (Neuro): normal cognition Gait exam (Neuro): Normal gait present Extrem General: Yes no clubbing, cyanosis or edema Left upper extremity: wrist (tenderness on palpation mostly over the volar aspect of the wrist) Results Reviewed Results Reviewed: Laboratory Tests 09/11/22 09/11/22 10:29 10:49 WBC 8.4 Hgb 13.3 Hct 39.4 Plt Count 272 Sodium 139 Potassium 4.4 Creatinine 0.72 Estimated GFR > 60 Fasting Glucose 101 H Calcium 9.1 AST 16 ALT 21 Triglycerides 41 Cholesterol 190 LDL Cholesterol, Calc 129 HDL Cholesterol 53 25-OH Vitamin D Total 28.5 TSH 1.02 Urine pH 6.0 Ur Specific Temple 1.025 Urine Protein Negative Urine Glucose (UA) Negative Urine Blood Negative Urine Nitrite Negative Ur Leukocyte Esterase Moderate (2+) H Assessment and Plan Assessment & Plan (1) Suprapubic pain: Code(s): R10.2 - Pelvic and perineal pain Plan: Will send patient for abdominal and pelvic CT for further evaluation (2) Right elbow pain: Code(s): M25.521 - Pain in right elbow Plan: Will send patient for x-rays of the right elbow for further evaluation Advised that her elbow pain is likely due to bursitis or tendinitis (3) Asthma: Code(s): J45.909 - Unspecified asthma, uncomplicated Qualifiers: Asthma severity: mild Asthma persistence: intermittent Asthma complication type: uncomplicated Qualified Code(s): J45.20 - Mild intermittent asthma, uncomplicated Plan: States that her asthma has been stable and she has not had to use her rescue inhaler(s) in a while now To continue with Albuterol HFA to use at home (1 to 2 inhalations Q 6 hours PRN) when needed (4) Renal calculi: Code(s): N20.0 - Calculus of kidney Plan: Left renal US done in March 2022 revealed (+) stable nonobstructing 3 mm left lower pole renal stone, confirming findings seen previously on KUB done at the ER a month prior in February 2022 Follow up with urology as scheduled - has appt scheduled for next month (5) Pure hypercholesterolemia: Code(s): E78.00 - Pure hypercholesterolemia, unspecified Plan: Results of her labs done in September 2022 reviewed and discussed with patient - advised that her fasting lipid profile have improved slightly when compared to last one done in 2018 Reinforced low-cholesterol diet Plan To return in 6 months for her next annual physical examination Orders: Orders CT abdomen pelvis w IV con 03/04/23 R10.2 - Pelvic and perineal pain XR elbow RT min 3V 03/04/23 M25.521 - Pain in right elbow Complete Blood Count Auto Diff 03/04/23 I10 - Essential (primary) hypertension, R10.2 - Pelvic and perineal pain Comprehensive Met. Panel 03/04/23 R10.2 - Pelvic and perineal pain Coding Level of Care Code Est Pt Level 4 (70148) Diagnoses Suprapubic pain R10.2 Right elbow pain M25.521 Mild intermittent asthma without complication J45.20 Asthma severity: mild Asthma persistence: intermittent Asthma complication type: uncomplicated Renal calculi N20.0 Pure hypercholesterolemia E78.00 Additional Codes EDGARDO-7 Assessment Billing - EDGARDO-7 Assessment Tool: EDGARDO-7 Assessment 76231 ([id number])
== END 2023-03-04 17:56 | disposition home or self-care (01) ==
LOC: HO.HMGH 17:09
PROVIDERS: PCP Internal Medicine; Visit Provider Internal Medicine
DX: R10.2 Pelvic and perineal pain (principal); M25.521 Pain in right elbow; J45.20 Mild intermittent asthma, uncomplicated; N20.0 Calculus of kidney; E78.00 Pure hypercholesterolemia, unspecified
CPT/HCPCS: 99214

== ENCOUNTER 2023-03-15 08:46 | Outpatient (REF) | payer BC, SELFPAY ==
--- NOTE | ~2023-03-15 | XR_ITS ---
EXAMINATION: XR ELBOW, RIGHT CLINICAL INFORMATION: Pain in right elbow. COMPARISON: None available. TECHNIQUE: AP, lateral, and oblique views of the right elbow. FINDINGS: Alignment is anatomic. No displaced fracture. Bone mineralization is normal. XR/XR elbow RT min 3V IMPRESSION: No displaced fracture. Recommend follow up images in 10-14 days if fracture is suspected.
[2023-03-15 09:04] LABS: MANUAL DIFF FLAG NO
[2023-03-15 09:51] LABS: Basophils Absolute Auto 0.1 X10*3/uL (0.0-0.2); Basophils Percent Auto 0.6 % (0-2); Eosinophils Absolute Auto 0.1 X10*3/uL (0.0-0.4); Eosinophils Percent Auto 1.6 % (0-4); Hematocrit 40.4 % (37.0-47.0); Hemoglobin 13.8 g/dl (12.0-16.0); Imm Gran Abs Auto 0.02 X10*3/uL (0.00-0.03); Imm Gran Pct Auto 0.2 % (0.0-0.4); Lymphocytes Absolute Auto 3.9 X10*3/uL (1.2-4.9); Lymphocytes Percent Auto 44.5 % (20-40); Mean Corpuscular HGB Conc 34.2 g/dl (31.0-35.0); Mean Corpuscular Hemoglobin 31.9 pg (27.0-33.0); Mean Corpuscular Volume 93.5 fL (80.0-98.0); Mean Platelet Volume 10.8 fL (9.4-12.3); Monocytes Absolute Auto 0.5 X10*3/uL (0.1-1.2); Monocytes Percent Auto 5.3 % (2-11); Neutrophils Absolute Auto 4.2 x10*3/uL (2.0-8.3); Neutrophils Percent Auto 47.8 % (45-73); Platelet Count 276 X10*3/uL (160-400); Red Blood Count 4.32 X10*6/uL (4.20-5.50); Red Cell Distribution Width 12.2 % (11.0-16.0); White Blood Count 8.8 X10*3/uL (4.8-10.8)
[2023-03-15 09:58] LABS: Appearance Urine Cloudy; Color Urine Yellow; Glucose Urine UA Negative (Negative); Leukocyte Esterase Urine Small (1+) (Negative); Nitrite Urine Negative (Negative); PH 6.5 (5.0-9.0); Specific Gravity - Urine >= 1.030 (1.005-1.025); UMIC TRIGGER UACC YES; Urine Blood Negative (Negative); Urine Ketones Negative (Negative); Urine Protein Negative (Neg-Trace)
[2023-03-15 10:03] LABS: Bacteria Urine 4+ (None Seen); Hyaline Casts Urine 0-2 /LPF (0-2); Squamous Epithelial Cell Urine >20 /HPF (0-2); UACC Culture Trigger YES; WBC Urine 21-50 /HPF (0-5)
[2023-03-15 10:18] LABS: Alanine Aminotransferase 28 U/L (0-31); Albumin Level 3.9 g/dL (3.5-5.0); Alkaline Phosphatase 67 U/L (39-117); Anion Gap 9 (12-20); Aspartate Amino Transferase 15 U/L (5-31); Bilirubin Total 0.7 mg/dL (0.0-1.0); Blood Urea Nitrogen 13 mg/dL (9-16); Calcium 9.2 mg/dL (8.4-10.2); Carbon Dioxide 26 mmol/L (22-29); Chloride 107 mmol/L (96-108); Estimated Glomerular Filt Rate > 60; Glucose Random 93 mg/dL (60-115); Sodium 138 mmol/L (135-145)
== END 2023-03-15 08:47 | disposition home or self-care (01) ==
LOC: HO.LAB 08:46
PROVIDERS: PCP Internal Medicine; Visit Provider Internal Medicine
DX: M25.521 Pain in right elbow (principal); I10 Essential (primary) hypertension; R10.2 Pelvic and perineal pain
CPT/HCPCS: 36415; 73080; 80053; 81001; 85025; 87086

== ENCOUNTER 2023-04-22 15:49 | Outpatient (REF) | payer BC, SELFPAY ==
--- NOTE | ~2023-04-22 | CT_ITS ---
EXAMINATION: CT ABDOMEN AND PELVIS WITH CONTRAST CLINICAL INFORMATION: Pelvic and perineal pain. COMPARISON: 03/09/2016 TECHNIQUE: Multidetector volumetric images were obtained from the superior aspect of the liver through the pubic symphysis following administration 85 mL of Omnipaque 350 intravenous contrast. Sagittal and coronal reformatted images were obtained on the technologist's workstation. Oral contrast: No This CT examination was performed using dose optimization techniques as appropriate, variously including the following: *Automated exposure control *Adjustment of mA and/or kV according to patient size (this includes techniques or standardized protocols for targeted exams where dose is matched to indication/reason for exam; i.e. extremities or head) *Use of iterative reconstruction technique DLP: 259 mGy-cm FINDINGS: LUNG BASES: The visualized lung bases are unremarkable. LIVER, GALLBLADDER, AND BILIARY TREE: The liver is normal in size and contour. No suspicious hepatic lesion or biliary ductal dilatation is present. The gallbladder is mildly contracted. PANCREAS: Unremarkable. SPLEEN: Unremarkable. ADRENAL GLANDS: Unremarkable. KIDNEYS AND URETERS: The kidneys are normal in size, shape, and attenuation. Punctate nonobstructing calculus in the left lower pole. No hydronephrosis or perinephric stranding. BLADDER: Decompressed. GASTROINTESTINAL TRACT: The small and large bowel are unremarkable. The appendix is unremarkable. ABDOMINAL WALL: No significant hernia is appreciated. LYMPH NODES: No bulky lymphadenopathy. VASCULAR: Normal caliber abdominal aorta. PELVIC VISCERA: Heterogeneous hyperemic fibroid uterus. Parametrial/adnexal stranding. OSSEOUS STRUCTURES: No destructive bone lesions. CT/CT abdomen pelvis w IV con IMPRESSION: Heterogeneous hyperemic fibroid uterus. Parametrial/adnexal stranding. Consider clinical correlation for pelvic inflammatory disease. Punctate nonobstructing calculus in the left lower pole. No hydronephrosis.
[2023-04-22] MEDS: iohexoL 350 MG/ML 100 ML INFUS..BTL IV (16:32)
== END 2023-04-22 15:50 | disposition home or self-care (01) ==
LOC: HO.CT 15:49
PROVIDERS: PCP Internal Medicine; Visit Provider Internal Medicine
DX: R10.2 Pelvic and perineal pain (principal)
CPT/HCPCS: 74177; Q9967

== ENCOUNTER 2023-06-17 14:27 | Outpatient (REF) | payer BC, SELFPAY ==
--- NOTE | ~2023-06-17 | MM_ITS ---
EXAMINATION: MM DIAGNOSTIC DIGITAL BREAST TOMOSYNTHESIS, BILATERAL US BREAST LIMITED, LEFT MAMMOGRAPHY: CLINICAL INFORMATION: 33-year-old female complaining of a left axillary/axillary tail breast pain, which has resolved as of today. Family history premenopausal breast cancer in mother age 28 and breast cancer in grandmother. COMPARISON: Mammography: 01/21/2018, 06/22/2015 (baseline exam) TECHNIQUE: Digital breast tomosynthesis is performed in both the craniocaudal and mediolateral oblique views along with computer-aided detection (CAD). Synthesized 2D images are generated from the tomosynthesis. FINDINGS: The breasts are heterogeneously dense, which may obscure small masses (ACR BI-RADS breast composition Category c). There are no suspicious masses, suspicious grouped calcifications, or areas of architectural distortion in either breast. The parenchymal pattern is stable from prior exams. No abnormalities noted in the left axillary region, where the patient complains of intermittent pain. This will be interrogated by ultrasound. There are no skin or right axillary abnormalities. Results are provided to the patient at time of visit by the technologist. ULTRASOUND: CLINICAL INFORMATION: As above. Left axillary/axillary tail breast pain, episodic, comes and goes, resolved as of today. COMPARISON: 06/22/2015. TECHNIQUE: Targeted sonographic evaluation was performed using a high frequency linear transducer. Attention was given to the axillary tail of the left breast as well as the axilla. Selected archived documentation. FINDINGS: LEFT BREAST: There is a mixture of fatty and fibroglandular tissue. No suspicious mass is seen. There is no pathologic acoustic shadowing. There are no cystic abnormalities. A solitary normal-appearing left axillary lymph node is present. MM/MM tomosynthesis diagnostic BI IMPRESSION: -There are no findings suspicious for malignancy in either breast. -There is no mammographic or sonographic correlate to explain left axillary/axillary tail breast pain. Recommend clinical management. -Otherwise, recommend the patient resume screening mammography in one year. -Additional screening adjuncts, such as screening breast ultrasound should be considered in this high-risk patient, usually staggered 6 months after screening mammography. OVERALL ASSESSMENT: Mammography: BI-RADS 1 - Negative Ultrasound: BI-RADS 1 - Negative RECOMMENDATION: 1. Patient should be managed based on the clinical impression. 2. Otherwise, routine annual screening mammography. This patient's information was entered into a reminder system with a target due date for their next mammogram.
== END 2023-06-17 14:28 | disposition home or self-care (01) ==
LOC: HO.MAMMO 14:27
PROVIDERS: PCP Internal Medicine; Visit Provider Internal Medicine
DX: N64.4 Mastodynia (principal)
CPT/HCPCS: 76642; 77062; 77066

== ENCOUNTER → 2023-06-17 15:00 | Outpatient (BNV) | payer BC, SELFPAY | PROVIDERS: PCP Internal Medicine; Visit Provider Radiology Diagnostic Radiology | DX: N64.4 Mastodynia (principal) | CPT/HCPCS: 76642; 77062; 77066 ==

== ENCOUNTER 2023-07-01 08:34 | Emergency (ER) | payer BC, SELFPAY ==
--- NOTE | ~2023-07-01 | CT_ITS ---
EXAMINATION: CT ABDOMEN AND PELVIS WITH CONTRAST CLINICAL INFORMATION: Left lower quadrant pain COMPARISON: 04/22/2023 TECHNIQUE: Multidetector volumetric images were obtained from the superior aspect of the liver through the pubic symphysis following administration 85 mL of Omnipaque 350 intravenous contrast. Sagittal and coronal reformatted images were obtained on the technologist's workstation. Oral contrast: No This CT examination was performed using dose optimization techniques as appropriate, variously including the following: *Automated exposure control *Adjustment of mA and/or kV according to patient size (this includes techniques or standardized protocols for targeted exams where dose is matched to indication/reason for exam; i.e. extremities or head) *Use of iterative reconstruction technique DLP: 405 mGy-cm FINDINGS: OPERATIONS INTERN: Nonobstructive bowel pattern. Tampon in place. LUNG BASES: The visualized lung bases are unremarkable. Nonenlarged heart. No pericardial effusion. LIVER, GALLBLADDER, AND BILIARY TREE: The liver is normal in size, shape, and attenuation. Too small to characterize left hepatic hypodensity, likely cyst. No biliary ductal dilatation is present. The gallbladder is unremarkable with no evidence of radiopaque gallstones, gallbladder wall thickening, or obvious pericholecystic inflammatory changes. PANCREAS: Unremarkable. SPLEEN: Unremarkable. ADRENAL GLANDS: Unremarkable. KIDNEYS AND URETERS: The kidneys are normal in size, shape, and attenuation. No hydronephrosis or hydroureter. Redemonstration tiny nonobstructing left lower pole renal calculus. No perinephric stranding. BLADDER: Decompressed. GASTROINTESTINAL TRACT: Decompressed stomach. Nonobstructive small bowel pattern. Unremarkable terminal ileum and appendix. No colonic pathology recognized. ABDOMINAL WALL: Moderate sized fat filled umbilical hernia. LYMPH NODES: Normal. VASCULAR: Unremarkable. PELVIC VISCERA: Redemonstration of heterogeneous hyperemic fibroid uterus. Tampon is in place. Left parametrial/adnexal stranding again identified. OSSEOUS STRUCTURES: Unremarkable. CT/CT abdomen pelvis w IV con IMPRESSION: No acute intra-abdominal or pelvic pathology. Redemonstration heterogeneous hyperemic fibroid uterus and parametrial/left adnexal cyst. Tiny nonobstructing left lower pole renal calculus again identified. Fleischner guidelines were followed.
--- NOTE | 2023-07-01 08:35 | ECG_ITS ---
Test Reason : dizziness Blood Pressure : / mmHG Vent. Rate : 077 BPM Atrial Rate : 077 BPM P-R Int : 132 ms QRS Dur : 076 ms QT Int : 372 ms P-R-T Axes : 018 058 038 degrees QTc Int : 420 ms Normal sinus rhythm Normal ECG No previous ECGs available Referred By: Generic ED Physician Electronically Signed By:EUGENIE LERNER MD
[2023-07-01 08:42] VITALS: BP 112/78; PULSE 80; RESP 16; TEMP 36.4; O2SAT 100; BMI 25.0
[2023-07-01 08:47] VITALS: BP 91/53; PULSE 71; RESP 18; TEMP 36.7; O2SAT 100
[2023-07-01 09:01] LABS: MANUAL DIFF FLAG NO
[2023-07-01 09:02] LABS: Basophils Percent Auto 0.2 % (0-2); Eosinophils Absolute Auto 0.2 X10*3/uL (0.0-0.4); Eosinophils Percent Auto 2.1 % (0-4); Imm Gran Abs Auto 0.04 X10*3/uL (0.00-0.03); Imm Gran Pct Auto 0.4 % (0.0-0.4); Lymphocytes Absolute Auto 1.4 X10*3/uL (1.2-4.9); Lymphocytes Percent Auto 14.9 % (20-40); Mean Corpuscular HGB Conc 33.3 g/dl (31.0-35.0); Mean Corpuscular Hemoglobin 31.5 pg (27.0-33.0); Mean Corpuscular Volume 94.4 fL (80.0-98.0); Mean Platelet Volume 9.8 fL (9.4-12.3); Monocytes Absolute Auto 0.3 X10*3/uL (0.1-1.2); Monocytes Percent Auto 3.5 % (2-11); Neutrophils Absolute Auto 7.4 x10*3/uL (2.0-8.3); Neutrophils Percent Auto 78.9 % (45-73); Platelet Count 256 X10*3/uL (160-400); Red Blood Count 4.45 X10*6/uL (4.20-5.50); Red Cell Distribution Width 12.8 % (11.0-16.0); White Blood Count 9.4 X10*3/uL (4.8-10.8)
--- NOTE | 2023-07-01 09:04 | ED.NAVMDI ---
HPI - Nausea/Vomiting/Diarrhea General Chief complaint: Nausea/Vomiting/Diarrhea Stated complaint: Recent travel dizziness nausea Time Seen by Provider: 07/01/23 08:59 Source: patient and old records reviewed Mode of arrival: ambulatory Limitations: no limitations History of Present Illness HPI Narrative: 33 yo female with PMH of HLD, asthma, renal colic here with c/o nausea and vomiting after trip to - was sick on Friday with n/v and body aches while still in recovered then symptoms came back after she returned home started again on Friday now has LLQ pain, dizziness, weakness, unable to eat or drink. Had normal BM x 1. No one else was sick in her group MD elicited complaint: nausea, vomiting and abdominal pain Pertinent past history: other (traveled to ) Description of vomiting: watery Associated nausea: Yes Associated abdominal pain: Yes Location of pain: LLQ Pain consistency: intermittent Severity: moderate Quality: aching Exacerbating factors: eating and movement Relieving factors: none Context: foreign travel Associated symptoms: fever/chills, loss of appetite, malaise, nausea/vomiting, weakness and fatigue Related Data Previous Rx's ?Medication ?Instructions ?Recorded pyridoxine (vitamin B6) 100 mg 100 mg PO DAILY 90 days #90 tabs 09/30/22 tablet ondansetron 4 mg disintegrating 4 mg PO Q8H PRN nausea and 07/01/23 tablet vomiting #20 tabs Allergies Allergy/AdvReac Type Severity Reaction Status Date / Time No Known Allergies Allergy Verified 07/01/23 08:46 Review of Systems Review of Systems: Constitutional : No Weight loss, No Fever, pos Chills ENT/Mouth : No sore throat, No Rhinorrhea Eyes: No Swelling, No Redness Cardiovascular : No Chest Pain, No SOB, NoEdema Respiratory : No Cough, No Sputum, No Wheezing Gastrointestinal : Positive Nausea, Positive Vomiting, no Diarrhea, positive abdominal Pain, No Hematochezia, No Melena Genitourinary : No Dysuria, No Urinary Frequency, No Hematuria, No Urgency Musculoskeletal : No joint pain, No Myalgias, No Joint Swelling Skin : No Skin Lesions, No rash Neuro : pos Weakness, No Numbness, No Dizziness, No Headache All other systems reviewed and are negative. Gastrointestinal: Gastrointestinal: Reports nausea PMFSH Past Medical History Attestation statement: The following information was validated with the patient. Source: old records reviewed Medical History Pure hypercholesterolemia Suprapubic pain History of nephrolithiasis Surgical History No pertinent past surgical history Social History Social History Housing: House Alcohol intake: never Patient Tobacco Use Status: Never used Tobacco e-Cigarette/Vaping Use: Never Used Second Hand Smoke Exposure: Yes Advance Directives: No Advance Directives Information Provided: Yes Do you have a plan to hurt others: No Plan service: No Current occupational status: employed Current occupation: rt hand / banker Cognitive needs: No Hearing needs: No Vision needs: No Physical Exam Vital Signs: Vital Signs: Last Vital Signs Temp 98.2 F 07/01/23 13:45 Pulse 81 07/01/23 13:45 Resp 18 07/01/23 13:45 BP 103/66 07/01/23 13:45 Pulse Ox 99 07/01/23 13:45 O2 Del Method Room Air 07/01/23 13:45 BMI result Body Mass Index 25.0 Appearance: Alert. Oriented X3. No acute distress. Eyes: Pupils equal, round and reactive to light. ENT: Pharynx dry MM Neck: Normal inspection. Neck supple. CVS: Normal heart rate and rhythm. Pulses normal. Respiratory: No respiratory distress. Breath sounds normal. Abdomen: Soft and moderate LLQ ttp no rebound Skin: Skin warm and dry. Normal skin color. Normal skin turgor. Extremities: No lower extremity edema. Neuro: Oriented X 3. No motor deficit. No sensory deficit. Medications Administered Discontinued Medications Generic Name Dose Route Start Last Admin Trade Name Freq PRN Reason Stop Dose Admin Sodium Chloride 1,000 mls @ 999 mls/hr 07/01/23 09:15 07/01/23 10:36 Ns IV 07/01/23 10:15 Infused .Q1H1M TANYA Infusion Sodium Chloride 1,000 mls @ 999 mls/hr 07/01/23 09:15 07/01/23 10:36 Ns IV 07/01/23 10:15 Infused .Q1H1M TANYA Infusion Iohexol 85 ml 07/01/23 12:11 04/23/24 12:11 Iohexol 350 Mg/Ml 100 Ml Infus..Btl IV 07/01/23 12:12 85 ml ONCE ONE Administration Morphine Sulfate 4 mg 07/01/23 09:12 07/01/23 09:35 Morphine Sulfate 4 Mg/Ml Cartridge IVPUSH 07/01/23 09:13 4 mg ONCE ONE Administration Protocol Ondansetron HCl 4 mg 07/01/23 09:12 07/01/23 09:35 Ondansetron Hcl 4 Mg/2 Ml Vial IVPUSH 07/01/23 09:13 4 mg ONCE ONE Administration Medical Decision Making Medical Decision Making MDM Narrative: 33 yo female with PMH of HLD, asthma, renal colic here with c/o n/v abdominal pain and LLQ pain after trip to [place] at this time will need IVF x 2L, IV morphine for pain, zofran will obtain basic labs, CT scan for colitis, diverticulitis, renal colic. Differential Diagnosis Differential Diagnoses: The differential diagnosis associated with the presentation includes viral syndrome, colitis, diverticulitis, renal colic Admission/Observation Consideration of admission/observation: Escalation of care including admission/observation considered tolerating PO feels better stable for DC Lab Data [facility] Lab Attestation statement: I reviewed the patient's lab results. 07/01/23 08:56 07/01/23 08:56 Labs: Lab Results 07/01/23 07/01/23 Range/Units 08:56 11:41 WBC 9.4 (4.8-10.8) X10*3/uL RBC 4.45 (4.20-5.50) X10*6/uL Hgb 14.0 (12.0-16.0) g/dl Hct 42.0 (37.0-47.0) % MCV 94.4 (80.0-98.0) fL MCH 31.5 (27.0-33.0) pg MCHC 33.3 (31.0-35.0) g/dl RDW 12.8 (11.0-16.0) % Plt Count 256 (160-400) X10*3/uL MPV 9.8 (9.4-12.3) fL Immature Gran % (Auto) 0.4 (0.0-0.4) % Neut % (Auto) 78.9 H (45-73) % Lymph % (Auto) 14.9 L (20-40) % Stanley % (Auto) 3.5 (2-11) % Eos % (Auto) 2.1 (0-4) % Baso % (Auto) 0.2 (0-2) % Lymph # (Auto) 1.4 (1.2-4.9) X10*3/uL Stanley # (Auto) 0.3 (0.1-1.2) X10*3/uL Eos # (Auto) 0.2 (0.0-0.4) X10*3/uL Baso # (Auto) 0.0 (0.0-0.2) X10*3/uL Abs Immat Gran (auto) 0.04 H (0.00-0.03) X10*3/uL Absolute Neuts (auto) 7.4 (2.0-8.3) x10*3/uL Absolute Nucleated RBC 0.000 (0.0-0.012) X10*3/uL Nucleated RBC % (auto) 0.0 (0.0-0.2) /100WBC Sodium 138 (135-145) mmol/L Potassium 3.8 (3.3-5.1) mmol/L Chloride 106 (96-108) mmol/L Carbon Dioxide 27 (22-29) mmol/L Anion Gap 9 L (12-20) BUN 12 (9-16) mg/dL Creatinine 0.74 (0.5-1.4) mg/dL Estim Creat Clear Calc 89.1 Estimated GFR > 60 Random Glucose 93 (60-115) mg/dL Calcium 9.0 (8.4-10.2) mg/dL Total Bilirubin 0.8 (0.0-1.0) mg/dL AST 15 (5-31) U/L ALT 21 (0-31) U/L Alkaline Phosphatase 83 (39-117) U/L Total Protein 7.4 (6.5-8.0) g/dL Albumin 4.1 (3.5-5.0) g/dL Lipase 14 (8-78) U/L Urine Color Yellow Urine Appearance Clear Urine pH 6.5 (5.0-9.0) Ur Specific [place] 1.015 (1.005-1.025) Urine Protein Negative (Neg-Trace) mg/dL Urine Glucose (UA) Negative (Negative) mg/dL Urine Ketones Trace (Negative) mg/dL Urine Blood Negative (Negative) Urine Nitrite Negative (Negative) Ur Leukocyte Esterase Negative (Negative) Urine Test NEGATIVE (NEGATIVE) Influenza Type A (PCR) NEGATIVE (Negative) Influenza Type B (PCR) NEGATIVE (Negative) RSV RNA Qual (PCR) NEGATIVE (Negative) SARS-CoV-2 RNA (RT-PCR) NEGATIVE (Negative) Independent Interpretation I performed an independent interpretation of an: EKG and CT Scan (no acute colitis) Interpretation: Rate: 77 Rhythm: NSR [place]: normal Normal P waves. Normal PATRICK. Normal QRS complex. ST T wave : normal no IRA qTC: 420 prior studies: no acute ischemia The study has been interpreted contemporaneously by me. . Radiology Impression Discussion of test interpretation with radiology: I have reviewed the radiologist's reading. External Record Review External record reviewed: Inpatient record and Office record Prescription Management I considered prescription management with: Other Critical Care Time Critical Care Time Critical Care Time: Yes Total Critical Care Time: 40 Attestation: IVF, IV morphine for pain that improves pain, repeat assessment I attest to this time spent taking care of the patient Discharge Plan Discharge Clinical Impression: Acute viral syndrome Nausea & vomiting Qualifiers: Vomiting type: unspecified Qualified Code(s): R11.2 - Nausea with vomiting, unspecified Patient Disposition: Home, Self-Care Instructions: Acute Nausea and Vomiting (ED), Viral Syndrome (ED) Additional Instructions: bland diet CT scan shows old L ovarian cyst and uterine fibroid return for worsening pain, fevers bloody stools or any other complaints Prescriptions: New ondansetron 4 mg tablet,disintegrating 4 mg PO Q8H PRN (Reason: nausea and vomiting) Qty: 20 0RF No Action pyridoxine (vitamin B6) 100 mg tablet 100 mg PO DAILY 90 Days Qty: 90 1RF Stand Alone Forms: Work/School Release Print Language: Cymraes
[2023-07-01] MEDS: 0.9 % Sodium Chloride 1,000 ML 999 ML IV ×2 (09:21)
[2023-07-01 09:28] LABS: Alanine Aminotransferase 21 U/L (0-31); Albumin Level 4.1 g/dL (3.5-5.0); Alkaline Phosphatase 83 U/L (39-117); Anion Gap 9 (12-20); Aspartate Amino Transferase 15 U/L (5-31); Bilirubin Total 0.8 mg/dL (0.0-1.0); Blood Urea Nitrogen 12 mg/dL (9-16); Carbon Dioxide 27 mmol/L (22-29); Chloride 106 mmol/L (96-108); Creatinine Clr Calc Pharmacy 89.1; Estimated Glomerular Filt Rate > 60; Glucose Random 93 mg/dL (60-115); Lipase 14 U/L (8-78); Potassium 3.8 mmol/L (3.3-5.1); Sodium 138 mmol/L (135-145); Total Protein 7.4 g/dL (6.5-8.0)
[2023-07-01 09:35] VITALS: RESP 14
[2023-07-01] MEDS: ondansetron HCL 4 MG/2 ML VIAL IVPUSH (09:35)
[2023-07-01] MEDS: Morphine Sulfate 4 MG/ML CARTRIDGE IVPUSH (09:35)
[2023-07-01 09:43] LABS: Influenza A PCR NEGATIVE (Negative); Influenza B PCR NEGATIVE (Negative); Resp Syncy Virus RNA Qual PCR NEGATIVE (Negative); SARS COV2 PCR INHOUSE NEGATIVE (Negative)
[2023-07-01 11:54] LABS: Appearance Urine Clear; Color Urine Yellow; Glucose Urine UA Negative (Negative); Leukocyte Esterase Urine Negative (Negative); Nitrite Urine Negative (Negative); PH 6.5 (5.0-9.0); Specific Gravity - Urine 1.015 (1.005-1.025); Urine Blood Negative (Negative); Urine Ketones Trace mg/dL (Negative); Urine Protein Negative (Neg-Trace)
[2023-07-01 11:56] LABS: UPreg QC Valid YES; Urine Pregnancy NEGATIVE (NEGATIVE)
[2023-07-01] MEDS: iohexoL 350 MG/ML 100 ML INFUS..BTL 85 ML IV (12:11)
[2023-07-01 13:45] VITALS: BP 103/66; PULSE 81; RESP 18; TEMP 36.8; O2SAT 99
[2023-07-01 14:29] VITALS: BP 103/66; PULSE 81; RESP 18; TEMP 36.8; O2SAT 99
[2023-07-01] MEDS: Ondansetron ODT 4 MG TAB.RAPDIS TRANSLINGU (14:29)
== END 2023-07-01 14:33 | disposition home or self-care (01) ==
PROVIDERS: Emergency Provider Emergency Medicine; PCP Internal Medicine
DX: B34.9 Viral infection, unspecified (principal); R11.2 Nausea with vomiting, unspecified; R10.32 Left lower quadrant pain; E78.00 Pure hypercholesterolemia, unspecified; J45.909 Unspecified asthma, uncomplicated; Z03.818 Encounter for observation for suspected exposure to other biological agents ruled out
CPT/HCPCS: 0241U; 74177; 80053; 81003; 81025; 83690; 85025; 93005; 96361; 96374; 96375; 99284; 99285; J2270; J2405; Q9967

== ENCOUNTER → 2023-07-01 08:35 | Outpatient (BNV) | payer BC, SELFPAY | PROVIDERS: Emergency Provider Emergency Medicine; PCP Internal Medicine; Visit Provider Internal Medicine Cardiovascular Disease | DX: R42 Dizziness and giddiness (principal) | CPT/HCPCS: 93010 ==

== ENCOUNTER 2023-08-27 09:25 | Outpatient (AMB) | payer BC, SELFPAY ==
--- NOTE | 2023-08-27 09:34 | A.OFFVIS_ITS ---
Vital Signs 08/27/23 09:35 Height 5 ft 1 in Weight 127 lb BMI 24.0 Intake Visit Reasons: N/Problem right elbow pain/no injury Intake Note: Tata a 33 year old right hand dominant female who presents today for an evaluation of right elbow pain. Patient reports intermittent elbow pain over 6 months that fluctuates in intensity. States pain is worse with repetitive use of her arm. Denies numbness or tingling. No previous tx. Hx of right arm fracture. Allergies No Known Allergies Allergy (Verified 08/27/23 09:40) Medication List - Last Reconciled 08/27/23 by Jace Trevino PA-C ondansetron 4 mg PO Q8H PRN pyridoxine (vitamin B6) 100 mg PO DAILY 90 days HPI HPI N/Problem right elbow pain/no injury: Details: 33-year-old right hand dominant female who presents to the office today for an evaluation of right elbow pain for 6 months. She states she has intermittent pain in her elbow that fluctuates in intensity. Her pain is aggravated with activities at work and repetitive use of her right arm and alleviates with resting. She denies any injury, numbness or tingling and has not had any treatment in the past. She has a history of right arm fracture. [facility] Medical History Pure hypercholesterolemia Suprapubic pain History of nephrolithiasis Surgical History No pertinent past surgical history Social History Housing: House Alcohol intake: never Patient Tobacco Use Status: Never used Tobacco e-Cigarette/Vaping Use: Never Used Second Hand Smoke Exposure: Yes service: No Current occupational status: employed Current occupation: rt hand / banker Cognitive needs: No Hearing needs: No Vision needs: No Review of Systems Const All systems reviewed & are unremarkable except as noted in HPI and below Physical Exam Vital Signs: BMI result Body Mass Index 24.0 Extrem Other: Right elbow: Skin intact. No erythema or swelling. ROM full without pain. Tenderness over the lateral epicondyle and pain with resisted wrist extension. NVI. Assessment & Plan Assessment & Plan (1) History of right tennis elbow: Code(s): Z87.39 - Personal history of other diseases of the musculoskeletal system and connective tissue Category: Medical Plan We discussed options which include OT, NSAIDs and injections. The patient will defer on the injection today and proceed with OT and NSAIDs. She was also give a handout of some home exercises. If symptoms persist, she will contact me for an injection, otherwise, PRN. Orders: Orders OT Evaluation and Treatment Today Z87.39 - Personal history of other diseases of the musculoskeletal system and connective tissue Patient Instructions: Scribed for Jace Trevino PA-C, by Emil Eduardo center medical director, on 08/27/2023 at 9:15 AM EST.? I, Jace Trevino PA-C, have personally reviewed and agree with the information entered by the scribe. Coding Level of Care Code New Pt Level 3 (06759) Diagnoses History of right tennis elbow Z87.39
[2023-08-27 09:35] VITALS: BMI 24.0
== END 2023-08-27 10:12 | disposition home or self-care (01) ==
PROVIDERS: PCP Internal Medicine; Visit Provider Physician Assistant
DX: M25.521 Pain in right elbow (principal)
CPT/HCPCS: 99203

== ENCOUNTER → 2023-08-27 09:25 | Outpatient (BNVA) | payer BC, SELFPAY | PROVIDERS: PCP Internal Medicine; Visit Provider Physician Assistant ==

== ENCOUNTER 2023-09-30 15:20 | Outpatient (AMB) | payer BC, SELFPAY ==
--- NOTE | 2023-09-30 15:23 | MHC.OFFVIS ---
Intake Visit Reasons: 1y/US Intake Note: Patient presents for follow up on: Kidney Stone and CT Scan Results Imagin07/01/23 Urology Medications: none Blood Thinner: none Lab Rn Required: No Accompanied by: Self / Same As Patient Allergies No Known Allergies Allergy (Verified 09/30/23 16:03) Medication List - Last Reconciled 09/30/23 by CHARO Cespedes No Known Home Meds HPI Comments Details: Tata is a pleasant 33-year-old female patient of Dr. Freitas. She presents to the office today for follow-up regarding her nephrolithiasis. When asked patient reports to be doing well. Of note, patient was seen approximately 1 year ago at which time a renal ultrasound was ordered for surveillance monitoring of nephrolithiasis however this was never completed as patient recently seeked emergency room services for ongoing left-sided lower abdominal pain she had been experiencing at which time a CT was ordered for further assessment evaluation. These results were reviewed with the patient today. The kidneys are normal in size, shape, and attenuation. No hydronephrosis or hydroureter noted. Redemonstration of tiny nonobstructing left lower pole renal calculus is noted. Patient reports to be following up with wired sweatband cutter for heterogeneous hyperemic fibroid uterus as she feels this could have been potentially causing her left-sided lower abdominal pain. She currently denies any bothersome urinary issues or concerns. In office urinalysis results reviewed with the patient today. She endorses to be drinking plenty of water daily and adding 1 oz of lemon juice to her water daily. She otherwise offers no issues or concerns at this time. [facility] Medical History Pure hypercholesterolemia Suprapubic pain History of nephrolithiasis Surgical History No pertinent past surgical history Social History Housing: House Alcohol intake: never Patient Tobacco Use Status: Never used Tobacco e-Cigarette/Vaping Use: Never Used Second Hand Smoke Exposure: Yes service: No Current occupational status: employed Current occupation: rt hand / banker Cognitive needs: No Hearing needs: No Vision needs: No Review of Systems Const All systems reviewed & are unremarkable except as noted in HPI and below Reports as per HPI Eyes Reports no additional complaints ENT Reports no additional complaints Card Reports no additional complaints Resp Reports no additional complaints GI Reports no additional complaints Reports as per HPI Musc Reports no additional complaints Neuro Reports no additional complaints Psych Reports no additional complaints Endo Reports no additional complaints Trevor/Lymph Reports no additional complaints Aller/Immun Reports no additional complaints Physical Exam Const General: cooperative, healthy appearing, comfortable, no acute distress, well developed, alert and awake Nutritional Appearance: average body habitus Orientation/consciousness: patient oriented x3 Limitations: no limitations HEENT Head: Yes normal to inspection, Yes normocephalic and Yes atraumatic Ears: hearing grossly normal bilaterally Eyes General: appearance normal, both eyes and all related structures Neck Neck: Yes normal visual inspection and Yes trachea midline Chest Chest palpation & inspection: normal inspection of the chest Resp Effort & Inspection: normal respiratory effort and able to speak in complete sentences Cardio Rate: regular rate GI Inspection: Yes normal to inspection General: Yes no CVA tenderness Back/Spine/Pelvis Back: no CVA tenderness Cervical Spine: normal cervical lordosis Skin General skin exam: no rashes or lesions noted Neuro General: patient oriented x3 Extrem General: Yes normal to inspection and Yes full ROM Psych Appearance: grossly normal Mental Status: mental status grossly normal Speech and movement: Normal speech and movement present and Clear speech present Affect: normal affect Attitude: cooperative Thought process: Normal thought process present Thought content: Normal thought content present Insight: Good insight present (Psych) Judgement: Good judgement present (Psych) Results AMB Urinalysis, Automated UA Leukoctes 70 Srikanth/uL Last Edit by [employer] Wine on 09/30/23 15:43 UA Nitrite Negative Last Edit by [employer] Time Wine on 09/30/23 15:43 UA Urobilinogen 0.2 mg/dL Last Edit by [employer] Time Wine on 09/30/23 15:43 UA Protein 0 mg/dL Last Edit by [employer] Time Wine on 09/30/23 15:43 UA pH 8.0 Last Edit by [employer] Wine on 09/30/23 15:43 UA Blood 0 Shaheen/uL Last Edit by [employer] Wine on 09/30/23 15:43 UA Specific [place] 1.010 Last Edit by [employer] Time Wine on 09/30/23 15:43 UA Ketone Negative Last Edit by Rober Plata on 09/30/23 15:43 UA Bilirubin 0 mg/dL Last Edit by Rober Plata on 09/30/23 15:43 UA Glucose 0 mg/dL Last Edit by Rober Plata on 09/30/23 15:43 Results Reviewed Results Reviewed: Laboratory Last Values Urine pH (Auto) 8.0 09/30/23 15:34 Specific [place] (Auto) 1.010 09/30/23 15:34 Urine Protein (Auto) 0 mg/dL 09/30/23 15:34 Glucose (UA)(Auto) 0 mg/dL 09/30/23 15:34 Urine Ketones (Auto) Negative 09/30/23 15:34 Urine Blood (Auto) 0 Shaheen/uL 09/30/23 15:34 Urine Nitrite (Auto) Negative 09/30/23 15:34 Urine Bilirubin (Auto) 0 mg/dL 09/30/23 15:34 Urine Urobilinogen (Auto) 0.2 mg/dL 09/30/23 15:34 Leukocyte Esterase (Auto) 70 Srikanth/uL 09/30/23 15:34 Date of Service: 07/01/23 EXAMINATION: CT ABDOMEN AND PELVIS WITH CONTRAST FINDINGS: CHAIN PEGGER: Nonobstructive bowel pattern. Tampon in place. LUNG BASES: The visualized lung bases are unremarkable. Nonenlarged heart. No pericardial effusion. LIVER, GALLBLADDER, AND BILIARY TREE: The liver is normal in size, shape, and attenuation. Too small to characterize left hepatic hypodensity, likely cyst. No biliary ductal dilatation is present. The gallbladder is unremarkable with no evidence of radiopaque gallstones, gallbladder wall thickening, or obvious pericholecystic inflammatory changes. PANCREAS: Unremarkable. SPLEEN: Unremarkable. ADRENAL GLANDS: Unremarkable. KIDNEYS AND URETERS: The kidneys are normal in size, shape, and attenuation. No hydronephrosis or hydroureter. Redemonstration tiny nonobstructing left lower pole renal calculus. No perinephric stranding. BLADDER: Decompressed. GASTROINTESTINAL TRACT: Decompressed stomach. Nonobstructive small bowel pattern. Unremarkable terminal ileum and appendix. No colonic pathology recognized. ABDOMINAL WALL: Moderate sized fat filled umbilical hernia. LYMPH NODES: Normal. VASCULAR: Unremarkable. PELVIC VISCERA: Redemonstration of heterogeneous hyperemic fibroid uterus. Tampon is in place. Left parametrial/adnexal stranding again identified. OSSEOUS STRUCTURES: Unremarkable. IMPRESSION: No acute intra-abdominal or pelvic pathology. Redemonstration heterogeneous hyperemic fibroid uterus and parametrial/left adnexal cyst. Tiny nonobstructing left lower pole renal calculus again identified. Assessment & Plan Assessment & Plan (1) Renal calculi: Code(s): N20.0 - Calculus of kidney Category: Medical Plan In office urinalysis results reviewed with the patient today; as noted above. Recent CT results reviewed with the patient today; as noted above Patient reports to be happy with current voiding parameters. Patient denies any urological issues or concerns at this time. Continue drinking plenty of water daily. Discussed continuation of adding 1 oz of lemon juice to water daily. Renal ultrasound in 1 year. Follow-up in 1 year with imaging to be completed prior; or sooner with any issues, concerns, and or questions. Orders: Orders US renal BI 1 Year N20.0 - Calculus of kidney AMB Urinalysis Automated Today Z13.9 - Encounter for screening, unspecified Patient Instructions: The patient had an opportunity to ask questions regarding the treatment plan. All questions were answered. Physical exam, labs, and imaging were discussed and reviewed in detail. As well as risks, benefits, and discussion of treatment choices. No major barriers to understanding were identified. The patient expressed understanding and agreement with the above treatment plan. The patient was made aware they should contact our office by phone for worsening of their current condition, the appearance of new symptoms, or with any questions or concerns. Compliance is encouraged with any medications and follow up testing that is ordered. It is a privilege to be allowed the opportunity to participate in? your urological care.? Again, if you have any questions or concerns If you have any questions or concerns please do not hesitate to contact me. The office is [phone]. This note is constructed using voice recognition software. While every effort has been made to ensure accuracy freelance photographer errors may have been included. Yours sincerely, CHARO Cespedes Coding Level of Care Code Est Pt Level 3 (38947) Diagnoses Renal calculi N20.0
== END 2023-09-30 16:03 | disposition home or self-care (01) ==
PROVIDERS: PCP Internal Medicine; Visit Provider Nurse Practitioner Family
DX: Z13.9 Encounter for screening, unspecified (principal); N20.0 Calculus of kidney
CPT/HCPCS: 99213

== ENCOUNTER → 2023-09-30 15:20 | Outpatient (BNVA) | payer BC, SELFPAY | PROVIDERS: PCP Internal Medicine; Visit Provider Nurse Practitioner Family | DX: N20.0 Calculus of kidney (principal) | CPT/HCPCS: 81003 ==

== ENCOUNTER 2023-10-22 08:00 | Outpatient (RCR) | payer BC, SELFPAY ==
--- NOTE | 2023-09-19 14:47 | MHC.OT.EP ---
[address] [phone] Occupational Therapy Plan of Care Patient Name: Tata Summers Date of Evaluation: 09/19/23 Diagnosis: Right elbow pain Pain Location: lateral elbow Pain Score: 6 Pain Scale Used: Numeric (0 - 10) Aggravating Factors: over head reaching grasping, throwing gripping/ grasping Alleviating Factors: resting; pt reports 0/10 pain at rest Assessment: Pt is a 33 yr. old R hand dominant female who reports pain in her L elbow only w/ certain activities such as putting her hair up, throwing a basketball, and performing lifting or repetitive gripping. She reports when she avoids these activities her pain will be at a zero; but if she performs them it can increase to a sharp 6 and then to a dull ache. 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 She has been referred to skilled OT therapy for a decrease of pain, and an increase of strength and the functional use of her dominant UE to RPLOF [ End ] Frequency and Duration: The patient will be seen 2xs a week for 6 weeks Short Term Goals: Pt will be complaint w/ her HEP Pt will be compliant w/ restrictions she was educated on in order to decrease pain Pt will report putting her hair up w/out pain Mcc Goals: Pt will report 0/10 pain w/ throwing a basketball Pt will have a electromechanisms design drafter strength of 35 lbs in her R hand w/ elbow flexed Pt will have a DASH<10% Treatment Plan: Therapeutic Exercise Therapeutic Activity Home Exercise Program Splinting Neuro Re-ed Patient Education Desensitization/Sensory Re-ed Edema Control ADL Training Ultrasound NMES Iontophoresis Paraffin Fluidotherapy MHP Cold Packs Joint Mobilization Soft Tissue Mobilization Kinesiotaping Other (see comments) Electronically Signed By: Jaqueline Hernandez OTR/L Please Sign and return to therapist. Thank you once again for your referral.
--- NOTE | 2023-12-31 16:15 | MHC.OT.DC ---
[address] [phone] F: [phone] Occupational Therapy Discharge Note Patient Name: Tata Summers Provider: Jace Trevino Diagnosis: Right elbow pain Date of Surgery: Date of Evaluation: 09/19/23 Date of Discharge: Treatments to Date: 9 Cancellations to Date: No Shows to Date: Discharge Status: Discharge Summary: Last tx was 10/17/23 pt was progressing well but did not follow up further Electronically Signed By: Jaqueline Hernandez OTR/L Reviewed/agree with student documentation: N/A Therapist: Please Sign and return to therapist, thank you for your referral.
== END 2023-12-31 16:15 | disposition home or self-care (01) ==
LOC: HO.OT 08:00
PROVIDERS: PCP Internal Medicine; Visit Provider Physician Assistant
DX: Z87.39 Personal history of other diseases of the musculoskeletal system and connective tissue (principal)
CPT/HCPCS: 97035; 97110; 97140; 97165; 97535

== ENCOUNTER 2023-11-14 09:10 | Outpatient (AMB) | payer BC, SELFPAY ==
--- NOTE | 2023-11-14 09:16 | MHC.OFFWIV ---
Intake Vital Signs 11/14/23 09:17 Height 5 ft 1 in Weight 130 lb BMI 24.6 BP 102/64 Blood Pressure Location Rt brachial Position Sitting Pulse 75 Pulse Source Pulse Oximeter Temp 98.3 F Temp Source Oral Pulse Oximetry (%) 98 Oxygen Delivery Method Room Air Intake Visit Reasons: EP pain in lt side of neck. Intake Note: pt c/o LT side neck pain. Started Friday Patient Tobacco Use Status: Never used Tobacco Allergies No Known Allergies Allergy (Verified 11/14/23 09:21) Medication List - Last Reconciled 11/14/23 by Louise Albrecht MD mometasone 0.1% appl topical PRN spironolactone 100 mg PO BID valacyclovir 4,000 mg PO DAILY PRN Do you need a note to return to daycare/school/sports/work: No HPI EP pain in lt side of neck. HPI Details Patient is a 33-year-old female came in today to be evaluated for left-sided upper back and neck pain For the past 3 days she has been having this pain Patient says that she has taken Tylenol but that does not help There is no weakness or numbness in her fingers or arms On examination patient is having pain over trapezius muscle left side I am prescribing cyclobenzaprine 10 mg up to 3 times a day Side effect of medication reviewed with the patient including drowsiness and no driving I am also prescribing diclofenac 75 mg b.i.d. with food If not better follow up with PCP [facility] Medical History Pure hypercholesterolemia Suprapubic pain History of nephrolithiasis Surgical History No pertinent past surgical history Social History Housing: House Alcohol intake: never Patient Tobacco Use Status: Never used Tobacco e-Cigarette/Vaping Use: Never Used Second Hand Smoke Exposure: Yes service: No Current occupational status: employed Current occupation: rt hand / banker Cognitive needs: No Hearing needs: No Vision needs: No Review of Systems Const All systems reviewed & are unremarkable except as noted in HPI and below Physical Exam Vital Signs: Last Vital Signs Temp 98.3 F 09/06/24 09:17 Pulse 75 11/14/23 09:17 BP 102/64 11/14/23 09:17 Pulse Ox 98 11/14/23 09:17 Oxygen Delivery Method Room Air 11/14/23 09:17 BMI result Body Mass Index 24.6 Const General: no acute distress Orientation/consciousness: patient oriented x3 Eyes General: appearance normal, both eyes and all related structures Neck Other: Patient is keeping it still because of pain, however supple Resp Effort & Inspection: normal respiratory effort and able to speak in complete sentences Auscultation: clear to auscultation bilaterally Back/Spine/Pelvis Back/spine/pelvis image: 1. Site of pain Neuro Other: Motor sensory intact vascular intact General: patient oriented x3 Psych Mental Status: mental status grossly normal Assessment & Plan Assessment & Plan (1) Strain of left trapezius muscle: Code(s): S46.812A - Strain of other muscles, fascia and tendons at shoulder and upper arm level, left arm, initial encounter Qualifiers: Encounter type: initial encounter Qualified Code(s): S46.812A - Strain of other muscles, fascia and tendons at shoulder and upper arm level, left arm, initial encounter Plan Patient is a 33-year-old female came in today to be evaluated for left-sided upper back and neck pain For the past 3 days she has been having this pain Patient says that she has taken Tylenol but that does not help There is no weakness or numbness in her fingers or arms On examination patient is having pain over trapezius muscle left side I am prescribing cyclobenzaprine 10 mg up to 3 times a day Side effect of medication reviewed with the patient including drowsiness and no driving I am also prescribing diclofenac 75 mg b.i.d. with food If not better follow up with PCP Medications: New diclofenac sodium 75 mg PO BID 28 tabs 0RF pain 14 days cyclobenzaprine 10 mg PO TID PRN 20 tabs 0RF muscle spasm 10 days Coding Level of Care Code Est Pt Level 3 (01430) Diagnoses Strain of left trapezius muscle, initial encounter S46.812A Encounter type: initial encounter
[2023-11-14 09:17] VITALS: BP 102/64; PULSE 75; TEMP 36.8; O2SAT 98; BMI 24.6
== END 2023-11-14 09:50 | disposition home or self-care (01) ==
PROVIDERS: PCP Internal Medicine; Visit Provider Internal Medicine
DX: S46.812A Strain of other muscles, fascia and tendons at shoulder and upper arm level, left arm, initial encounter (principal)
CPT/HCPCS: 99213

== ENCOUNTER 2024-02-13 14:48 | Outpatient (AMB) | payer OTHER, SELFPAY ==
--- NOTE | 2024-02-13 14:52 | A.OFFPC_ITS ---
Vital Signs 02/13/24 14:53 Height 5 ft 1 in Weight 134 lb 6 oz BMI 25.4 BP 102/64 Blood Pressure Location Lt brachial Position Sitting Pulse 66 Pulse Source Pulse Oximeter Pulse Oximetry (%) 98 Oxygen Delivery Method Room Air Intake Visit Reasons: PE Licensed Physical Therapy Assistant Required: No Accompanied by: Self / Same As Patient Allergies No Known Allergies Allergy (Verified 02/13/24 15:27) Medication List - Last Reconciled 02/13/24 by Tavo Armendariz MD valacyclovir 4,000 mg PO DAILY PRN Tobacco use date assessed: 02/13/24 Dental Screening Dental Screen Date: 02/13/24 Did you have a dental visit in the last 12 months?: Yes Did you have a dental problem in the last 6 months where you did not have access to dental care?: No Was dental information given to patient?: Patient has dentist HPI PE HPI Details Patient comes in today for her annual physical examination States that she feels okay but continues to experience frequent tightness and discomfort over the area between her neck and left shoulder and over the back of her shoulder She was seen at the walk-in clinic in [place] for this same complaint about 3 months ago and was prescribed some Cyclobenzaprine, which she states has not really helped but just knocks her out when she takes it at night She does not recall and injury or trauma to her neck or left shoulder lately She denies any headaches or dizziness Denies any headaches, no shortness of breath No nausea/vomiting, no abdominal pain No change in bowel habits noted She denies any acute urinary symptoms PFSH Medical History Pure hypercholesterolemia Suprapubic pain History of nephrolithiasis Surgical History No pertinent past surgical history Social History Housing: House Alcohol intake: never Patient Tobacco Use Status: Never used Tobacco e-Cigarette/Vaping Use: Never Used Second Hand Smoke Exposure: Yes service: No Current occupational status: employed Current occupation: rt hand / banker Cognitive needs: No Hearing needs: No Vision needs: No Questionnaire PHQ-9 Over the last 2 weeks, how often have you been bothered by any of the following problems? 1. Little interest or pleasure in doing things: not at all 2. Feeling down, depressed, or hopeless: not at all 3. Trouble falling or staying asleep, or sleeping too much: not at all 4. Feeling tired or having little energy: not at all 5. Poor appetite or overeating: not at all 6. Feeling bad about yourself - or that you are a failure or have let yourself or your family down: not at all 7. Trouble concentrating on things, such as reading the newspaper or watching television: not at all 8. Moving or speaking so slowly that other people could have noticed. Or the opposite - being so fidgety or restless that you have been moving around a lot more than usual: not at all 9. Thoughts that you would be better off or of hurting yourself in some way: not at all Total score: 0 Depression Screening Interpretation: Negative Depression Screening Done: Yes 66092 - PHQ-9 Billing: Yes Source: Developed by Drs. Roe Santiago, Pat Ontiveros, Fahad Nance and colleagues, with an educational george from [employer] Thrive Questionnaire Date Thrive assessed: 02/13/24 I am a: Patient What is your living situation today?: I have a steady place to live Within the past 12 months, did the food you bought not last and you didn't have the money to get more?: Never true Within the past 12 months, did you worry whether your food would run out before you got money to buy more?: Never true Do you have trouble paying for medicines?: No Do you have trouble getting transportation to medical appointments?: No Do you have trouble paying your heating and electricity bill?: No Do you have trouble taking care of your child, family member or friend?: No Do you have trouble with day-to-day activities such as bathing, preparing meals, shopping, managing finances, etc.?: No Are you currently unemployed and looking for a job?: No Are you interested in more education?: No Please select the resources that you would like help with: None Currently or been in a relationship where the following occur: No concerns reported THRIVE Score: 0 AUDIT C Alcohol Use Questionnaire (AUDIT-C) 1. How often do you have a drink containing alcohol?: Never 2. How many drinks containing alcohol do you have on a typical day when you are drinking?: 1 or 2 3. How often do you have six or more drinks on one occasion?: Never Total Score: 0 Score Reviewed/Action Taken: Yes EDGARDO-7 AMB Questionnaire EDGARDO-7 Date EDGARDO - 7 assessed: 02/13/24 Feeling nervous, anxious, or on edge: 0 = Not at all Not being able to stop or control worryin = Not at all Worrying too much about different things: 0 = Not at all Trouble relaxin = Not at all Being so restless that it is hard to sit still: 0 = Not at all Becoming easily annoyed or irritable: 0 = Not at all Feeling afraid as if something awful might happen: 0 = Not at all Total EDGARDO-7 score (0-4 normal; 5-9 mild; 10-14 moderate; 15-21 severe): 0 Source: Developed by Drs. Roe Santiago, Pat Ontiveros, Fahad Nance and colleagues, with an educational george from [employer] Review of Systems Const Denies chills, Denies fatigue, Denies fever(s), Denies headache(s) and Denies malaise Eyes Denies blurry vision, Denies change in vision, Denies irritation and Denies itchy eyes ENT Denies dysphagia, Denies dizziness, Denies otalgia, Denies headache(s), Denies nasal congestion, Denies neck pain, Denies odynophagia, Denies sinus pain and Denies sore throat Card Denies chest pain, Denies rapid heart rate, Denies irregular heart rhythm, Denies palpitations and Denies dyspnea Resp Denies chest congestion, Denies cough, Denies dyspnea and Denies wheezing GI Denies abdominal pain, Denies bloating, Denies constipation, Denies dysphagia, Denies heartburn, Denies diarrhea, Denies nausea, Denies odynophagia and Denies vomiting Denies hematuria, Denies urinary frequency, Denies dysuria, Denies urinary incontinence and Denies urinary urgency Musc Details: (+) tightness and discomfort over the area between her neck and left shoulder and over the back of her left shoulder Denies back pain, Denies arthralgias, Denies joint swelling, Denies muscle weakness and Denies neck pain Skin/Breast Denies breast pain, Denies breast mass, Denies change in pigmentation, Denies lesions, Denies rash and Denies unusual bruising Neuro Denies dizziness, Denies headache(s) and Denies paresthesias Psych Denies anxiety and Denies depression Endo Denies fatigue and Denies palpitations Trevor/Lymph Denies easy bruising Aller/Immun Denies itchy eyes and Denies wheezing Physical exam (Primary Care) Vital Signs: Last Vital Signs Pulse 66 02/13/24 14:53 BP 102/64 02/13/24 14:53 Pulse Ox 98 02/13/24 14:53 Oxygen Delivery Method Room Air 02/13/24 14:53 BMI result Body Mass Index 25.4 Tobacco/Smoking Status: Tobacco use Status Tobacco use date assessed 02/13/24 02/13/24 14:58 Patient Tobacco Use Status Never used Tobacco 02/13/24 14:58 e-Cigarette/Vaping Use Never Used 02/13/24 14:58 PHQ-9: PHQ-9 Score PHQ-9: Total score 0 02/14/24 11:30 Depression Screening Interpretation: Negative Thrive Assessment: Date of Thrive Assessment Date Thrive assessed 02/13/24 02/13/24 14:58 Currently or been in a relationship where the following occur: No concerns reported Const General: no acute distress, alert and awake Orientation/consciousness: patient oriented x3 HENMT Head: Yes normocephalic and Yes atraumatic Ears: external ears normal, TM's normal bilaterally and EAC's normal General nose exam: No nasal discharge present Face and sinus: Yes normal facial exam and Yes sinuses nontender Teeth and gingiva: dentition normal Throat: Yes posterior oropharynx normal and Yes tonsils normal (no TP congestion) Eyes Eyelids: Yes eyelids normal Conjunctivae: conjunctivae normal Pupils: Equal, round and reactive pupils present EOM: EOMs intact bilaterally Neck Neck: Yes no lymphadenopathy and Yes supple Thyroid: Thyroid normal Resp Auscultation: clear to auscultation bilaterally, no rales and no wheezes Cardio Rate: regular rate Rhythm: regular rhythm Heart sounds: no murmurs GI Palpation (GI): Soft to palpation, nontender and No hepatosplenomegaly present Auscultation: normal bowel sounds General: Yes no CVA tenderness Back/Spine/Pelvis Other: (+) he ild tenderness on palpation over the left trapezius muscle between her neck and left shoulder and over the back of the left scapula Back: no CVA tenderness Thoracic/Lumbar Spine: thoracic and lumbar spine normal to inspection Skin Lesions: no lesions Rashes: no rashes Neuro General: patient oriented x3, moves all extremities, no focal motor deficits and CN's II-XI intact bilaterally Cranial nerves: Yes Equal, round and reactive pupils present Cognition (Neuro): normal cognition Gait exam (Neuro): Normal gait present Extrem General: Yes no clubbing, cyanosis or edema Coding Level of Care Code Est Pt Prev Care 18-39y([id number]) Diagnoses Annual physical exam Z00.00 Strain of left trapezius muscle, initial encounter S46.812A Encounter type: initial encounter Mild intermittent asthma without complication J45.20 Asthma severity: mild Asthma persistence: intermittent Asthma complication type: uncomplicated Renal calculi N20.0 Pure hypercholesterolemia E78.00 Left lower quadrant abdominal pain R10.32 Additional Codes PHQ-9 - 36996 - PHQ-9 Billing: Yes ([id number]) Assessment & Plan Assessment & Plan (1) Annual physical exam: Code(s): Z00.00 - Encounter for general adult medical examination without abnormal fin dings Category: Medical Plan: Check labs Patient states that she is up-to-date with her annual pap smear and gyneciology exam - have instructed her to have her charge poster's office send over a copy of her most recent OV notes for documentation (2) Strain of left trapezius muscle: Code(s): S46.812A - Strain of other muscles, fascia and tendons at shoulder and upper arm level, left arm, initial encounter Category: Medical Qualifiers: Encounter type: initial encounter Qualified Code(s): S46.812A - Strain of other muscles, fascia and tendons at shoulder and upper arm level, left arm, initial encounter Plan: Discussed with patient that her ongoing left shoulder area discomfort over the past few months is likely due to a left trapezius muscle strain that has not been properly addressed She was prescribed some Cyclobenzaprine, which she states have not helped much Will refer her to physical therapy for further evaluation and management of this issue (3) Asthma: Code(s): J45.909 - Unspecified asthma, uncomplicated Category: Medical Qualifiers: Asthma severity: mild Asthma persistence: intermittent Asthma complication type: uncomplicated Qualified Code(s): J45.20 - Mild intermittent asthma, uncomplicated Plan: Patient states that her asthma has been stable and she has not had to use her rescue inhaler(s) in a while Continue Albuterol HFA 1 to 2 inhalations Q 6 hours PRN only when needed (4) Renal calculi: Code(s): N20.0 - Calculus of kidney Category: Medical Plan: Left renal US done in March 2022 revealed (+) stable nonobstructing 3 mm left lower pole renal stone, confirming findings seen previously on KUB done at the ER previously in February 2022 She's also had abdominal and pelvic CT done in April and June 2023 for other reasons and both scans showed the same - tiny nonobstructing left lower pole renal stone Follow up with urology as scheduled (5) Pure hypercholesterolemia: Code(s): E78.00 - Pure hypercholesterolemia, unspecified Category: Medical Plan: Her fasting lipids in September 2022 revealed a total cholesterol level of 190 mg/dl and LDL cholesterol level of 129 mg/dl, both improved from her previous numbers in 2019 Reinforced low cholesterol diet Will have her recheck her labs and fasting lipids LILO for follow up (6) Left lower quadrant abdominal pain: Code(s): R10.32 - Left lower quadrant pain Category: Medical Plan: Her abdominal and pelvic CT done in and June 2023 both revealed the same findings of a heterogeneous hyperemic fibroid uterus and left parametrial/adnexal stranding, likely due to pelvic inflammatory disease or congestion Patient states that she currently does not have any noticeable pain over her left lower quadrant area but still has pain there every now and then States that she is following up with her charge poster regularly for this issue Plan Follow up in 4 months Orders: Orders Lipid Panel 02/13/24 E78.00 - Pure hypercholesterolemia, unspecified, Z00.00 - Encounter for general adult medical examination without abnormal findings Comprehensive [place]. Panel Fast 02/13/24 E78.00 - Pure hypercholesterolemia, unspecified, Z00.00 - Encounter for general adult medical examination without abnormal findings UA CC w/rflx Micro + Cult 02/13/24 R30.0 - Dysuria, Z00.00 - Encounter for general adult medical examination without abnormal findings Vitamin D 25-OH Total 02/13/24 E55.9 - Vitamin D deficiency, unspecified, Z00.00 - Encounter for general adult medical examination without abnormal findings PT Evaluation and Treatment 02/13/24 S46.812A - Strain of other muscles, fascia and tendons at shoulder and upper arm level, left arm, initial encounter Complete Blood Count Auto Diff 02/13/24 D64.9 - Anemia, unspecified, Z00.00 - Encounter for general adult medical examination without abnormal findings TSH reflex Free T4 02/13/24 E78.00 - Pure hypercholesterolemia, unspecified, Z00.00 - Encounter for general adult medical examination without abnormal findings
[2024-02-13 14:53] VITALS: BP 102/64; PULSE 66; O2SAT 98; BMI 25.4
== END 2024-02-13 15:39 | disposition home or self-care (01) ==
LOC: HO.HMCH 14:49
PROVIDERS: PCP Internal Medicine; Visit Provider Internal Medicine
DX: Z00.00 Encounter for general adult medical examination without abnormal findings (principal); S46.812A Strain of other muscles, fascia and tendons at shoulder and upper arm level, left arm, initial encounter; J45.20 Mild intermittent asthma, uncomplicated; N20.0 Calculus of kidney; E78.00 Pure hypercholesterolemia, unspecified; R10.32 Left lower quadrant pain

== ENCOUNTER → 2024-02-13 14:48 | Outpatient (BNVA) | payer OTHER, SELFPAY | PROVIDERS: PCP Internal Medicine; Visit Provider Internal Medicine | DX: Z00.00 Encounter for general adult medical examination without abnormal findings (principal); S46.812A Strain of other muscles, fascia and tendons at shoulder and upper arm level, left arm, initial encounter; J45.20 Mild intermittent asthma, uncomplicated; N20.0 Calculus of kidney; E78.00 Pure hypercholesterolemia, unspecified; R10.32 Left lower quadrant pain | CPT/HCPCS: 96127 ==

== ENCOUNTER 2024-02-18 08:13 | Outpatient (REF) | payer OTHER, SELFPAY ==
[2024-02-18 08:31] LABS: MANUAL DIFF FLAG NO
[2024-02-18 08:52] LABS: Basophils Absolute Auto 0.1 X10*3/uL (0.0-0.2); Basophils Percent Auto 0.6 % (0-2); Eosinophils Absolute Auto 0.1 X10*3/uL (0.0-0.4); Eosinophils Percent Auto 1.4 % (0-4); Hematocrit 40.3 % (37.0-47.0); Hemoglobin 13.6 g/dl (12.0-16.0); Imm Gran Abs Auto 0.02 X10*3/uL (0.00-0.03); Imm Gran Pct Auto 0.3 % (0.0-0.4); Lymphocytes Absolute Auto 2.9 X10*3/uL (1.2-4.9); Lymphocytes Percent Auto 36.3 % (20-40); Mean Corpuscular HGB Conc 33.7 g/dl (31.0-35.0); Mean Corpuscular Hemoglobin 31.6 pg (27.0-33.0); Mean Corpuscular Volume 93.7 fL (80.0-98.0); Mean Platelet Volume 10.3 fL (9.4-12.3); Monocytes Absolute Auto 0.5 X10*3/uL (0.1-1.2); Monocytes Percent Auto 5.8 % (2-11); Neutrophils Absolute Auto 4.4 x10*3/uL (2.0-8.3); Neutrophils Percent Auto 55.6 % (45-73); Platelet Count 274 X10*3/uL (160-400); Red Cell Distribution Width 12.4 % (11.0-16.0)
[2024-02-18 09:13] LABS: Appearance Urine Turbid; Color Urine Yellow; Glucose Urine UA Negative (Negative); Leukocyte Esterase Urine Moderate (2+) (Negative); Nitrite Urine Negative (Negative); PH 7.5 (5.0-9.0); Specific Gravity - Urine 1.025 (1.005-1.025); UMIC TRIGGER UACC YES; Urine Blood Negative (Negative); Urine Ketones Negative (Negative); Urine Protein Negative (Neg-Trace)
[2024-02-18 09:28] LABS: Bacteria Urine 1+ (None Seen); Hyaline Casts Urine 0-2 /LPF (0-2); Other Crystals Urine Present; RBC Urine 0-2 /HPF (0-2); UACC Culture Trigger YES; WBC Urine 0-5 /HPF (0-5)
[2024-02-18 09:36] LABS: Alanine Aminotransferase 19 U/L (0-31); Alkaline Phosphatase 69 U/L (39-117); Anion Gap 11 (12-20); Aspartate Amino Transferase 18 U/L (5-31); Bilirubin Total 0.7 mg/dL (0.0-1.0); Blood Urea Nitrogen 12 mg/dL (9-16); Calcium 9.7 mg/dL (8.4-10.2); Carbon Dioxide 26 mmol/L (22-29); Chloride 107 mmol/L (96-108); Cholesterol 200 mg/dL (<200); Estimated Glomerular Filt Rate > 60; Glucose Fasting 103 mg/dL (60-99); HDL Cholesterol 52 mg/dL (>40); LDL Cholesterol Calculated 134 mg/dL (<100); Potassium 4.1 mmol/L (3.3-5.1); Sodium 140 mmol/L (135-145); Total Protein 7.2 g/dL (6.5-8.0); Triglycerides 70 mg/dL (<150)
[2024-02-18 09:46] LABS: Vitamin D 25-OH Total 22.4 ng/mL (>30)
== END 2024-02-18 08:14 | disposition home or self-care (01) ==
LOC: HO.LAB 08:13
PROVIDERS: PCP Internal Medicine; Visit Provider Internal Medicine
DX: Z00.00 Encounter for general adult medical examination without abnormal findings (principal); E78.00 Pure hypercholesterolemia, unspecified; E55.9 Vitamin D deficiency, unspecified; D64.9 Anemia, unspecified; R30.0 Dysuria
CPT/HCPCS: 36415; 80053; 80061; 81001; 81003; 82306; 84443; 85025; 87086

== ENCOUNTER 2024-06-14 16:09 | Outpatient (AMB) | payer OTHER, SELFPAY ==
[2024-06-14 16:15] VITALS: BP 100/76; PULSE 93; O2SAT 97; BMI 25.0
--- NOTE | 2024-06-14 16:15 | MHC.PC.OV ---
Vital Signs 06/14/24 16:15 Height 5 ft 1 in Weight 132 lb 8 oz BMI 25.0 BP 100/76 Blood Pressure Location Lt brachial Position Sitting Pulse 93 Pulse Source Pulse Oximeter Pulse Oximetry (%) 97 Oxygen Delivery Method Room Air Intake Visit Reasons: hyperlipidemia Painter Touch Up Required: No Accompanied by: Self / Same As Patient Allergies No Known Allergies Allergy (Verified 06/15/24 03:56) Medication List - Last Reconciled 06/15/24 by Tavo Armendariz MD doxepin 10 mg PO BEDTIME 30 days valacyclovir 4,000 mg PO DAILY PRN Tobacco use date assessed: 06/14/24 Dental Screening Dental Screen Date: 06/14/24 Did you have a dental visit in the last 12 months?: Yes Did you have a dental problem in the last 6 months where you did not have access to dental care?: No Was dental information given to patient?: Patient has dentist HPI hyperlipidemia HPI Details Patient comes in today for her follow up visit She would like to go over the results of her labs done a few days after her annual physical exam back in February 2024 States that she currently feels okay but reports experiencing recurrent pain over her right jaw/TMJ area lately and she is not sure what to make of it Notes that she would sometimes just wake up in the morning with her right TMJ area hurting already and states that the pain feels worse when she is chewing on her food when eating She denies any ear pain or any recent cough cold symptoms She denies any headaches or dizziness Denies any chest pains, no shortness of breath No nausea/vomiting, no abdominal pain No change in bowel habits noted [facility] Medical History (Updated 06/15/24 @ 04:31 by Tavo Armendariz MD) Anxiety Vitamin D deficiency Pure hypercholesterolemia Suprapubic pain History of nephrolithiasis Surgical History No pertinent past surgical history Social History Housing: House Alcohol intake: never Patient Tobacco Use Status: Never used Tobacco e-Cigarette/Vaping Use: Never Used Second Hand Smoke Exposure: Yes service: No Current occupational status: employed Current occupation: rt hand / banker Cognitive needs: No Hearing needs: No Vision needs: No Questionnaire PHQ-9 Over the last 2 weeks, how often have you been bothered by any of the following problems? 1. Little interest or pleasure in doing things: not at all 2. Feeling down, depressed, or hopeless: not at all 3. Trouble falling or staying asleep, or sleeping too much: not at all 4. Feeling tired or having little energy: not at all 5. Poor appetite or overeating: not at all 6. Feeling bad about yourself - or that you are a failure or have let yourself or your family down: not at all 7. Trouble concentrating on things, such as reading the newspaper or watching television: not at all 8. Moving or speaking so slowly that other people could have noticed. Or the opposite - being so fidgety or restless that you have been moving around a lot more than usual: not at all 9. Thoughts that you would be better off or of hurting yourself in some way: not at all Total score: 0 Depression Screening Interpretation: Negative Depression Screening Done: Yes 52906 - PHQ-9 Billing: Yes Source: Developed by Drs. Roe Santiago, Pat Ontiveros, Fahad Nance and colleagues, with an educational george from [employer]. Thrive Questionnaire Date Thrive assessed: 06/14/24 I am a: Patient What is your living situation today?: I have a steady place to live Within the past 12 months, did the food you bought not last and you didn't have the money to get more?: Never true Within the past 12 months, did you worry whether your food would run out before you got money to buy more?: Never true Do you have trouble paying for medicines?: No Do you have trouble getting transportation to medical appointments?: No Do you have trouble paying your heating and electricity bill?: No Do you have trouble taking care of your child, family member or friend?: No Do you have trouble with day-to-day activities such as bathing, preparing meals, shopping, managing finances, etc.?: No Are you currently unemployed and looking for a job?: No Are you interested in more education?: No Please select the resources that you would like help with: None Currently or been in a relationship where the following occur: No concerns reported THRIVE Score: 0 AUDIT C Alcohol Use Questionnaire (AUDIT-C) 1. How often do you have a drink containing alcohol?: Monthly or less 2. How many drinks containing alcohol do you have on a typical day when you are drinking?: 1 or 2 3. How often do you have six or more drinks on one occasion?: Never Total Score: 1 Score Reviewed/Action Taken: Yes EDGARDO-7 AMB Questionnaire EDGARDO-7 Date EDGARDO - 7 assessed: 06/14/24 Feeling nervous, anxious, or on edge: 0 = Not at all Not being able to stop or control worryin = Not at all Worrying too much about different things: 0 = Not at all Trouble relaxin = Not at all Being so restless that it is hard to sit still: 0 = Not at all Becoming easily annoyed or irritable: 0 = Not at all Feeling afraid as if something awful might happen: 0 = Not at all Total EDGARDO-7 score (0-4 normal; 5-9 mild; 10-14 moderate; 15-21 severe): 0 Source: Developed by Drs. Roe Santiago, Pat Ontiveros, Fahad Nance and colleagues, with an educational george from [employer]. Review of Systems Const Denies chills, Denies fatigue, Denies fever(s) and Denies headache(s) Eyes Denies itchy eyes ENT Details: (+) recurrent pain over the right TMJ area - see HPI Denies dysphagia, Denies dizziness, Denies otalgia, Denies headache(s), Denies neck pain, Denies odynophagia and Denies sore throat Card Denies chest pain, Denies palpitations and Denies dyspnea Resp Denies chest congestion, Denies cough and Denies dyspnea GI Denies abdominal pain, Denies constipation, Denies dysphagia, Denies heartburn, Denies diarrhea, Denies nausea, Denies odynophagia and Denies vomiting Denies difficulty voiding, Denies nocturia, Denies dysuria and Denies urinary urgency Musc Denies back pain, Denies arthralgias and Denies neck pain Skin/Breast Denies rash Neuro Denies dizziness and Denies headache(s) Endo Denies fatigue and Denies palpitations Trevor/Lymph Denies easy bruising Aller/Immun Denies itchy eyes Physical exam (Primary Care) Vital Signs: Last Vital Signs Pulse 93 06/14/24 16:15 BP 100/76 06/14/24 16:15 Pulse Ox 97 06/14/24 16:15 Oxygen Delivery Method Room Air 06/14/24 16:15 BMI result Body Mass Index 25.0 Tobacco/Smoking Status: Tobacco use Status Tobacco use date assessed 06/14/24 06/14/24 16:20 Patient Tobacco Use Status Never used Tobacco 06/14/24 16:20 e-Cigarette/Vaping Use Never Used 06/14/24 16:20 PHQ-9: PHQ-9 Score PHQ-9: Total score 0 06/14/24 16:34 Depression Screening Interpretation: Negative Thrive Assessment: Date of Thrive Assessment Date Thrive assessed 06/14/24 06/14/24 16:20 Currently or been in a relationship where the following occur: No concerns reported Const General: no acute distress and alert HENMT Other: (+) mild tenderness on palpation over the right TMJ area Ears: TM's normal bilaterally and EAC's normal Throat: Yes posterior oropharynx normal and Yes tonsils normal (no TP congestion) Neck Neck: Yes supple and No lymphadenopathy Thyroid: Thyroid normal Resp Auscultation: clear to auscultation bilaterally, no rales and no wheezes Cardio Rate: regular rate Rhythm: regular rhythm Heart sounds: no murmurs GI Palpation (GI): Soft to palpation and nontender Auscultation: normal bowel sounds General: Yes no CVA tenderness Back/Spine/Pelvis Back: no CVA tenderness Thoracic/Lumbar Spine: No lumbar spinal tenderness Skin Rashes: no rashes Extrem General: Yes no clubbing, cyanosis or edema Results Reviewed Results Reviewed: Laboratory Tests 02/18/24 08:30 WBC 8.0 Hgb 13.6 Hct 40.3 Plt Count 274 Sodium 140 Potassium 4.1 Creatinine 0.75 Estimated GFR > 60 Fasting Glucose 103 H Calcium 9.7 D AST 18 ALT 19 Triglycerides 70 Cholesterol 200 H LDL Cholesterol, Calc 134 H HDL Cholesterol 52 25-OH Vitamin D Total 22.4 L TSH 1.30 Ur Specific [place] 1.025 Urine Protein Negative Urine Glucose (UA) Negative Urine Blood Negative Urine Nitrite Negative Ur Leukocyte Esterase Moderate (2+) H Coding Level of Care Code Est Pt Level 4 (30747) Diagnoses Pure hypercholesterolemia E78.00 Mild intermittent asthma without complication J45.20 Asthma severity: mild Asthma persistence: intermittent Asthma complication type: uncomplicated Vitamin D deficiency E55.9 Renal calculi N20.0 Arthralgia of right temporomandibular joint M26.621 Anxiety F41.9 Additional Codes PHQ-9 - 80914 - PHQ-9 Billing: Yes ([id number]) Assessment & Plan Assessment & Plan (1) Pure hypercholesterolemia: Code(s): E78.00 - Pure hypercholesterolemia, unspecified Category: Medical Plan: Results of her labs done back in February 2024 reviewed and discussed with patient - she is advised that her total and LDL cholesterol levels are both slightly higher than normal and have increased slightly from her previous numbers a couple of years ago Reinforced low cholesterol diet Will have her recheck her labs and fasting lipids in 6 months for follow up (2) Asthma: Code(s): J45.909 - Unspecified asthma, uncomplicated Category: Medical Qualifiers: Asthma severity: mild Asthma persistence: intermittent Asthma complication type: uncomplicated Qualified Code(s): J45.20 - Mild intermittent asthma, uncomplicated Plan: Patient states that her asthma has been well-controlled and she has not had to use her rescue inhaler(s) in a long time Continue Albuterol HFA 1 to 2 inhalations Q 6 hours PRN only when needed (3) Vitamin D deficiency: Code(s): E55.9 - Vitamin D deficiency, unspecified Category: Medical Plan: She is advised that her vitamin-D level was very low on labs done back in February 2024 Will have her start taking OTC vitamin-D 3 2000 units QD (4) Renal calculi: Code(s): N20.0 - Calculus of kidney Category: Medical Plan: Left renal US done in March 2022 revealed (+) stable nonobstructing 3 mm left lower pole renal stone, confirming findings seen previously on KUB done at the ER previously in February 2022 She's also had abdominal and pelvic CT done in April and June 2023 for other reasons and both scans showed the same - tiny nonobstructing left lower pole renal stone Follow up with urology as scheduled (5) Arthralgia of right temporomandibular joint: Code(s): M26.621 - Arthralgia of right temporomandibular joint Category: Medical Plan: Have advised patient that her recent right TMJ pain is likely a result of her teeth-grinding when she is sleeping at night, which patient now admits that she has been doing over the years States that she actually has a mouth guard that her dentist wants her to use regularly when she is sleeping at night but she finds it difficult to tolerate Discussed with patient her frequent teeth grinding is likely a manifestation of some deep-seated anxiety, which patient also admits she has States that she has been dealing with anxiety often while she was growing up but she never has had to take any medications for anxiety so far Have advised patient that we should try to see if we can get her anxiety controlled better and hopefully this in turn will either slow down or resolve her teeth grinding tendency at night Otherwise, if left unchecked, have explained to patient that she may start experiencing more frequent jaw pains or TMJ pain due to arthritis of the TMJ joint as she gets older (6) Anxiety: Code(s): F41.9 - Anxiety disorder, unspecified Category: Medical Plan: Will go ahead and start the patient on a trial of Doxepin 10 mg Q HS She is concerned that taking meds for sleep will cause her to feel drowsy or groggy the next day Have advised patient that we are only starting her on a low dose of Doxepin but she should still call us back if even the 10 mg of Doxepin at bedtime causes her to feel some side effects the next day Plan To return in 6 months for her next annual physical examination Orders: Orders Complete Blood Count Auto Diff 6 Months D64.9 - Anemia, unspecified TSH reflex Free T4 6 Months E78.00 - Pure hypercholesterolemia, unspecified UA CC w/rflx Micro + Cult 6 Months R30.0 - Dysuria Vitamin D 25-OH Total 6 Months E55.9 - Vitamin D deficiency, unspecified Comprehensive [place]. Panel Fast 6 Months E78.00 - Pure hypercholesterolemia, unspecified Lipid Panel 6 Months E78.00 - Pure hypercholesterolemia, unspecified Medications: New doxepin 10 mg PO BEDTIME 30 days 30 caps 5RF cholecalciferol (vitamin D3) 50 mcg PO DAILY 90 days 90 caps 3RF E55.9 - Vitamin D deficiency, unspecified
== END 2024-06-14 16:47 | disposition home or self-care (01) ==
LOC: HO.HMCH 16:09
PROVIDERS: PCP Internal Medicine; Visit Provider Internal Medicine
DX: E78.00 Pure hypercholesterolemia, unspecified (principal); J45.20 Mild intermittent asthma, uncomplicated; E55.9 Vitamin D deficiency, unspecified; N20.0 Calculus of kidney; M26.621 Arthralgia of right temporomandibular joint; F41.9 Anxiety disorder, unspecified

== ENCOUNTER → 2024-06-14 16:09 | Outpatient (BNVA) | payer OTHER, SELFPAY | PROVIDERS: PCP Internal Medicine; Visit Provider Internal Medicine | DX: E78.00 Pure hypercholesterolemia, unspecified (principal); J45.20 Mild intermittent asthma, uncomplicated; E55.9 Vitamin D deficiency, unspecified; N20.0 Calculus of kidney; M26.621 Arthralgia of right temporomandibular joint; F41.9 Anxiety disorder, unspecified | CPT/HCPCS: 96127 ==

== ENCOUNTER 2024-07-16 08:10 | Outpatient (REF) | payer OTHER, SELFPAY | END 2024-07-16 08:11 | disposition home or self-care (01) | LOC: HO.MAMMO 08:10 | PROVIDERS: PCP Internal Medicine; Visit Provider Internal Medicine | DX: Z12.31 Encounter for screening mammogram for malignant neoplasm of breast (principal) | CPT/HCPCS: 77063; 77067 ==

== ENCOUNTER → 2024-07-16 08:30 | Outpatient (BNV) | payer OTHER, SELFPAY | PROVIDERS: PCP Internal Medicine; Visit Provider Internal Medicine | DX: Z12.31 Encounter for screening mammogram for malignant neoplasm of breast (principal) | CPT/HCPCS: 77063; 77067 ==

== ENCOUNTER 2024-09-14 08:27 | Outpatient (REF) | payer OTHER, SELFPAY ==
--- NOTE | ~2024-09-14 | US_ITS ---
CLINICAL HISTORY: N20.0 - Calculus of kidney US of kidneys Comparison: 09/11/2022 01:01 PM EDT: US Findings: Right kidney is normal in size, echogenicity and morphology, 10.0 cm in length. No calculus, mass or hydronephrosis. Left kidney is normal in size, echogenicity and morphology, 10.0 cm in length. No calculus, mass or hydronephrosis. Limited color Doppler demonstrates unremarkable bilateral blood flow. Impression: Normal exam. This document has been electronically signed by: Grace Vergara MD on 09/14/2024 12:26:44
== END 2024-09-14 08:28 | disposition home or self-care (01) ==
LOC: HO.HMGCX 08:27
PROVIDERS: PCP Internal Medicine; Visit Provider Nurse Practitioner Family
DX: N20.0 Calculus of kidney (principal)
CPT/HCPCS: 76775

== ENCOUNTER → 2024-09-14 08:30 | Outpatient (BNV) | payer OTHER, SELFPAY | PROVIDERS: PCP Internal Medicine; Visit Provider Radiology Diagnostic Radiology | DX: N20.0 Calculus of kidney (principal) | CPT/HCPCS: 76775 ==

== ENCOUNTER 2024-09-29 15:41 | Outpatient (AMB) | payer OTHER, SELFPAY ==
--- NOTE | 2024-09-29 15:43 | MHC.OFFVIS ---
Intake Visit Reasons: 1y/US(set) Intake Note: Patient presents for follow up on: Kidney Stone Imagin09/14/24 Urology Medications: none Blood Thinner: none Cnc Operator Required: No Accompanied by: Self / Same As Patient Allergies No Known Allergies Allergy (Verified 09/29/24 21:26) Medication List - Last Reconciled 09/29/24 by CHARO Cespedes valacyclovir 4,000 mg PO DAILY PRN HPI Comments Details: Tata is a pleasant 34-year-old female patient of Dr. Freitas. She presents to the office today for follow-up regarding her nephrolithiasis. When asked patient reports to be doing well. She denies having had any bothersome urinary issues or concerns since her last office visit here. Recent renal imaging results were reviewed with the patient today. 10/01 bilateral kidneys are normal in size, echogenicity, and morphology. No calculus, renal masses, and or hydronephrosis noted bilaterally. Per radiology report. In office urinalysis results reviewed with the patient today. She reports having followed up with history department chair for ongoing left lower abdominal pain she had been experiencing and has since been diagnosed with fibroid uterus. When asked she continues to attempt to drink plenty of water daily. She denies urinary urgency, urinary frequency, incontinence, nocturia, hematuria, dysuria, foul smelling urine, changes to urinary stream, flank pain, fever, and or chills. She is happy with her current voiding parameters. All questions were answered. She otherwise offers no other issues or concerns at this time. [facility] Medical History Anxiety Vitamin D deficiency Pure hypercholesterolemia Suprapubic pain History of nephrolithiasis Surgical History No pertinent past surgical history Social History Housing: House Alcohol intake: never Patient Tobacco Use Status: Never used Tobacco e-Cigarette/Vaping Use: Never Used Second Hand Smoke Exposure: Yes service: No Current occupational status: employed Current occupation: rt hand / banker Cognitive needs: No Hearing needs: No Vision needs: No Review of Systems Const All systems reviewed & are unremarkable except as noted in HPI and below Reports as per HPI Eyes Reports no additional complaints ENT Reports no additional complaints Card Reports no additional complaints Resp Reports no additional complaints GI Reports no additional complaints Reports as per HPI Musc Reports no additional complaints Neuro Reports no additional complaints Psych Reports no additional complaints Endo Reports no additional complaints Trevor/Lymph Reports no additional complaints Aller/Immun Reports no additional complaints Physical Exam Const General: cooperative, healthy appearing, comfortable, no acute distress, well developed, alert and awake Nutritional Appearance: average body habitus Orientation/consciousness: patient oriented x3 Limitations: no limitations HEENT Head: Yes normal to inspection, Yes normocephalic and Yes atraumatic Ears: hearing grossly normal bilaterally Eyes General: appearance normal, both eyes and all related structures Neck Neck: Yes normal visual inspection and Yes trachea midline Chest Chest palpation & inspection: normal inspection of the chest Resp Effort & Inspection: normal respiratory effort and able to speak in complete sentences Cardio Rate: regular rate GI Inspection: Yes normal to inspection General: Yes no CVA tenderness Back/Spine/Pelvis Back: no CVA tenderness Cervical Spine: normal cervical lordosis Skin General skin exam: no rashes or lesions noted Neuro General: patient oriented x3 Extrem General: Yes normal to inspection and Yes full ROM Psych Appearance: grossly normal Mental Status: mental status grossly normal Speech and movement: Normal speech and movement present and Clear speech present Affect: normal affect Attitude: cooperative Thought process: Normal thought process present Thought content: Normal thought content present Insight: Good insight present (Psych) Judgement: Good judgement present (Psych) Results AMB Urinalysis, Automated UA Leukoctes 125 Srikanth/uL Last Edit by Raven Mijares MA on 09/29/24 15:54 UA Nitrite Negative Last Edit by Raven Mijares MA on 09/29/24 15:54 UA Urobilinogen 3.5 mg/dL Last Edit by Raven Mijares MA on 09/29/24 15:54 UA Protein 0 mg/dL Last Edit by Raven Mijares MA on 09/29/24 15:54 UA pH 6.0 Last Edit by Raven Mijares MA on 09/29/24 15:54 UA Blood 0 Shaheen/uL Last Edit by Raven Mijares MA on 09/29/24 15:54 UA Specific [place] 1.020 Last Edit by Raven Mijares MA on 09/29/24 15:54 UA Ketone Negative Last Edit by Raven Mijares LE on 09/29/24 15:54 UA Bilirubin 0 mg/dL Last Edit by Raven MijaresLE on 09/29/24 15:54 UA Glucose 0 mg/dL Last Edit by Raven Mijares LE on 09/29/24 15:54 Results Reviewed Results Reviewed: Laboratory Last Values Urine pH (Auto) 6.0 09/29/24 15:49 Specific [place] (Auto) 1.020 09/29/24 15:49 Urine Protein (Auto) 0 mg/dL 09/29/24 15:49 Glucose (UA)(Auto) 0 mg/dL 09/29/24 15:49 Urine Ketones (Auto) Negative 09/29/24 15:49 Urine Blood (Auto) 0 Shaheen/uL 09/29/24 15:49 Urine Nitrite (Auto) Negative 09/29/24 15:49 Urine Bilirubin (Auto) 0 mg/dL 09/29/24 15:49 Urine Urobilinogen (Auto) 3.5 mg/dL 09/29/24 15:49 Leukocyte Esterase (Auto) 125 Srikanth/uL 09/29/24 15:49 Date of Service: 09/14/24 Procedure(s): US renal BI Findings: Right kidney is normal in size, echogenicity and morphology, 10.0 cm in length. No calculus, mass or hydronephrosis. Left kidney is normal in size, echogenicity and morphology, 10.0 cm in length. No calculus, mass or hydronephrosis. Limited color Doppler demonstrates unremarkable bilateral blood flow. Impression: Normal exam. Assessment & Plan Assessment & Plan (1) Renal calculi: Code(s): N20.0 - Calculus of kidney Category: Medical Plan In office urinalysis results with the patient today; as noted above. She currently denies any bothersome urinary issues or concerns. She reports be happy with current voiding parameters. Recent renal imaging results with the patient today; as noted above. Continue drinking plenty of water daily. We discussed continuing to add 1 oz of lemon juice to water daily. Will continue with surveillance monitoring. Will obtain renal ultrasound in 1 year. Follow-up in 1 year with imaging to be completed prior; or sooner with any issues, concerns, and or questions. Orders: Orders AMB Urinalysis Automated Today Z13.9 - Encounter for screening, unspecified US renal BI 1 Year N20.0 - Calculus of kidney Patient Instructions: The patient had an opportunity to ask questions regarding the treatment plan. All questions were answered. Physical exam, labs, and imaging were discussed and reviewed in detail. As well as risks, benefits, and discussion of treatment choices. No major barriers to understanding were identified. The patient expressed understanding and agreement with the above treatment plan. The patient was made aware they should contact our office by phone for worsening of their current condition, the appearance of new symptoms, or with any questions or concerns. Compliance is encouraged with any medications and follow up testing that is ordered. It is a privilege to be allowed the opportunity to participate in? your urological care.? Again, if you have any questions or concerns If you have any questions or concerns please do not hesitate to contact me. The office is [phone]. This note is constructed using voice recognition software. While every effort has been made to ensure accuracy special education kindergarten teacher errors may have been included. Yours sincerely, CHARO Cespedes Coding Level of Care Code Est Pt Level 3 (76568) Diagnoses Renal calculi N20.0
== END 2024-09-29 16:06 | disposition home or self-care (01) ==
LOC: HO.HUSH 15:42
PROVIDERS: PCP Internal Medicine; Visit Provider Nurse Practitioner Family
DX: Z13.9 Encounter for screening, unspecified (principal); N20.0 Calculus of kidney
CPT/HCPCS: 99213

== ENCOUNTER → 2024-09-29 15:41 | Outpatient (BNVA) | payer OTHER, SELFPAY | PROVIDERS: PCP Internal Medicine; Visit Provider Nurse Practitioner Family | DX: N20.0 Calculus of kidney (principal) | CPT/HCPCS: 81003 ==

== ENCOUNTER 2025-02-08 10:30 | Outpatient (REF) | payer OTHER, SELFPAY ==
[2025-02-08 10:47] LABS: MANUAL DIFF FLAG NO
[2025-02-08 11:02] LABS: Hematocrit 41.8 % (37.0-47.0); Hemoglobin 14.0 g/dl (12.0-16.0); Imm Gran Abs Auto 0.01 X10*3/uL (0.00-0.03); Imm Gran Pct Auto 0.1 % (0.0-0.4); Lymphocytes Absolute Auto 2.7 X10*3/uL (1.2-4.9); Mean Corpuscular HGB Conc 33.5 g/dl (31.0-35.0); Mean Corpuscular Hemoglobin 31.2 pg (27.0-33.0); Mean Corpuscular Volume 93.1 fL (80.0-98.0); NRBC Abs Auto 0.000 X10*3/uL (0.0-0.012); NRBC Pct Auto 0.0 /100WBC (0.0-0.2); Platelet Count 298 X10*3/uL (160-400); Red Blood Count 4.49 X10*6/uL (4.20-5.50); White Blood Count 7.0 X10*3/uL (4.8-10.8)
[2025-02-08 11:22] LABS: Appearance Urine Clear; Glucose Urine UA Negative (Negative); PH 6.5 (5.0-9.0); Specific Gravity - Urine 1.025 (1.005-1.025); UMIC TRIGGER UACC YES
[2025-02-08 11:37] LABS: UACC Culture Trigger YES
[2025-02-08 12:06] LABS: Alanine Aminotransferase 22 U/L (0-31); Albumin Level 4.4 g/dL (3.5-5.0); Alkaline Phosphatase 81 U/L (39-117); Anion Gap 13 (12-20); Aspartate Amino Transferase 23 U/L (5-31); Blood Urea Nitrogen 14 mg/dL (9-16); Calcium 9.1 mg/dL (8.4-10.2); Carbon Dioxide 26 mmol/L (22-29); Chloride 106 mmol/L (96-108); Cholesterol 227 mg/dL (<200); Estimated Glomerular Filt Rate > 60; HDL Cholesterol 50 mg/dL (>40); Potassium 4.1 mmol/L (3.3-5.1); Sodium 141 mmol/L (135-145); Total Protein 7.4 g/dL (6.5-8.0); Triglycerides 120 mg/dL (<150)
== END 2025-02-08 10:31 | disposition home or self-care (01) ==
LOC: HO.LAB 10:30
PROVIDERS: PCP Internal Medicine; Visit Provider Internal Medicine
DX: Z00.00 Encounter for general adult medical examination without abnormal findings (principal); D64.9 Anemia, unspecified; E78.00 Pure hypercholesterolemia, unspecified; E55.9 Vitamin D deficiency, unspecified
CPT/HCPCS: 36415; 80053; 80061; 81001; 82306; 84443; 85025; 87086

== ENCOUNTER 2025-02-15 16:54 | Outpatient (AMB) | payer OTHER, SELFPAY ==
--- NOTE | 2025-02-15 17:03 | MHC.PC.OV ---
Vital Signs 02/15/25 17:04 Height 5 ft 1 in Weight 133 lb 8 oz BMI 25.2 BP 130/60 Blood Pressure Location Lt brachial Position Sitting Temp 97.1 F Temp Source Temporal Artery Scan Intake Visit Reasons: Annual Exam Intake Note: Patient is here today for a physical. Elementary Reading Tutor Required: No Diesel Service Journeyman: Not Required per policy Accompanied by: Self / Same As Patient Allergies No Known Allergies Allergy (Verified 02/15/25 17:24) Medication List - Last Reconciled 02/15/25 by Tavo Armendariz MD valacyclovir 4,000 mg PO DAILY PRN Tobacco use date assessed: 02/15/25 Dental Screening Dental Screen Date: 06/14/24 HPI Annual Exam HPI Details Patient comes in today for her annual physical examination States that she feels okay She denies any headaches or dizziness Denies any headaches, no shortness of breath No nausea/vomiting, no abdominal pain No change in bowel habits noted She denies any acute urinary symptoms She had her follow up labs done last week - to discuss her results States that she is up-to-date with her yearly gynecology exam and pap smear - she goes to see her technical assistance consultant in [facility] Medical History Anxiety Vitamin D deficiency Pure hypercholesterolemia Suprapubic pain History of nephrolithiasis Surgical History No pertinent past surgical history Social History Housing: House Alcohol intake: never Patient Tobacco Use Status: Never used Tobacco e-Cigarette/Vaping Use: Never Used Second Hand Smoke Exposure: No service: No Current occupational status: employed Current occupation: rt hand / banker Cognitive needs: No Hearing needs: No Vision needs: No Questionnaire PHQ-9 Over the last 2 weeks, how often have you been bothered by any of the following problems? 1. Little interest or pleasure in doing things: not at all 2. Feeling down, depressed, or hopeless: not at all 3. Trouble falling or staying asleep, or sleeping too much: not at all 4. Feeling tired or having little energy: not at all 5. Poor appetite or overeating: not at all 6. Feeling bad about yourself - or that you are a failure or have let yourself or your family down: not at all 7. Trouble concentrating on things, such as reading the newspaper or watching television: not at all 8. Moving or speaking so slowly that other people could have noticed. Or the opposite - being so fidgety or restless that you have been moving around a lot more than usual: not at all 9. Thoughts that you would be better off or of hurting yourself in some way: not at all Total score: 0 Depression Screening Interpretation: Negative Depression Screening Done: Yes 25342 - PHQ-9 Billing: Yes Source: Developed by Drs. Roe Santiago, Pat Ontiveros, Fahad Nance and colleagues, with an educational george from [email or web address]. Thrive Questionnaire Date Thrive assessed: 02/15/25 I am a: Patient What is your living situation today?: I have a steady place to live Within the past 12 months, did the food you bought not last and you didn't have the money to get more?: Never true Within the past 12 months, did you worry whether your food would run out before you got money to buy more?: Never true Do you have trouble paying for medicines?: No Do you have trouble getting transportation to medical appointments?: No Do you have trouble paying your heating and electricity bill?: No Do you have trouble taking care of your child, family member or friend?: No Do you have trouble with day-to-day activities such as bathing, preparing meals, shopping, managing finances, etc.?: No Are you currently unemployed and looking for a job?: No Are you interested in more education?: No Please select the resources that you would like help with: None Currently or been in a relationship where the following occur: No concerns reported THRIVE Score: 0 AUDIT C Alcohol Use Questionnaire (AUDIT-C) 1. How often do you have a drink containing alcohol?: Monthly or less 2. How many drinks containing alcohol do you have on a typical day when you are drinking?: 1 or 2 3. How often do you have six or more drinks on one occasion?: Never Total Score: 1 Score Reviewed/Action Taken: Yes EDGARDO-7 AMB Questionnaire EDGARDO-7 Date EDGARDO - 7 assessed: 06/14/24 Feeling nervous, anxious, or on edge: 0 = Not at all Not being able to stop or control worryin = Not at all Worrying too much about different things: 0 = Not at all Trouble relaxin = Not at all Being so restless that it is hard to sit still: 0 = Not at all Becoming easily annoyed or irritable: 0 = Not at all Feeling afraid as if something awful might happen: 0 = Not at all Total EDGARDO-7 score (0-4 normal; 5-9 mild; 10-14 moderate; 15-21 severe): 0 Source: Developed by Drs. Roe Santiago, Pat Ontiveros, Fahad Nance and colleagues, with an educational george from [email or web address]. Review of Systems Const Denies chills, Denies fatigue, Denies fever(s), Denies headache(s) and Denies malaise Eyes Denies blurry vision, Denies change in vision, Denies irritation and Denies itchy eyes ENT Denies dysphagia, Denies dizziness, Denies otalgia, Denies headache(s), Denies nasal congestion, Denies neck pain, Denies odynophagia, Denies sinus pain and Denies sore throat Card Denies chest pain, Denies rapid heart rate, Denies irregular heart rhythm, Denies palpitations and Denies dyspnea Resp Denies chest congestion, Denies cough, Denies dyspnea and Denies wheezing GI Denies abdominal pain, Denies bloating, Denies constipation, Denies dysphagia, Denies heartburn, Denies diarrhea, Denies nausea, Denies odynophagia and Denies vomiting Denies hematuria, Denies urinary frequency, Denies dysuria, Denies urinary incontinence and Denies urinary urgency Musc Denies back pain, Denies arthralgias, Denies joint swelling, Denies muscle weakness and Denies neck pain Skin/Breast Denies breast pain, Denies breast mass, Denies change in pigmentation, Denies lesions, Denies rash and Denies unusual bruising Neuro Denies dizziness, Denies headache(s) and Denies paresthesias Psych Denies anxiety and Denies depression Endo Denies fatigue and Denies palpitations Trevor/Lymph Denies easy bruising Aller/Immun Denies itchy eyes and Denies wheezing Physical exam (Primary Care) Vital Signs: Last Vital Signs Temp 97.1 F 02/15/25 17:04 BP 130/60 02/15/25 17:04 BMI result Body Mass Index 25.2 Tobacco/Smoking Status: Tobacco use Status Tobacco use date assessed 02/15/25 02/15/25 17:09 Patient Tobacco Use Status Never used Tobacco 02/15/25 17:09 e-Cigarette/Vaping Use Never Used 02/15/25 17:09 PHQ-9: PHQ-9 Score PHQ-9: Total score 0 02/15/25 17:26 Depression Screening Interpretation: Negative Thrive Assessment: Date of Thrive Assessment Date Thrive assessed 06/14/24 02/15/25 17:09 Currently or been in a relationship where the following occur: No concerns reported Const General: no acute distress, alert and awake Orientation/consciousness: patient oriented x3 HENMT Head: Yes normocephalic and Yes atraumatic Ears: external ears normal, TM's normal bilaterally and EAC's normal General nose exam: No nasal discharge present Face and sinus: Yes normal facial exam and Yes sinuses nontender Teeth and gingiva: dentition normal Throat: Yes posterior oropharynx normal and Yes tonsils normal (no TP congestion) Eyes Eyelids: Yes eyelids normal Conjunctivae: conjunctivae normal Pupils: Equal, round and reactive pupils present EOM: EOMs intact bilaterally Neck Neck: Yes no lymphadenopathy and Yes supple Thyroid: Thyroid normal Resp Auscultation: clear to auscultation bilaterally, no rales and no wheezes Cardio Rate: regular rate Rhythm: regular rhythm Heart sounds: no murmurs GI Palpation (GI): Soft to palpation, nontender and No hepatosplenomegaly present Auscultation: normal bowel sounds General: Yes no CVA tenderness Back/Spine/Pelvis Back: no CVA tenderness Thoracic/Lumbar Spine: thoracic and lumbar spine normal to inspection Skin Lesions: no lesions Rashes: no rashes Neuro General: patient oriented x3, moves all extremities, no focal motor deficits and CN's II-XI intact bilaterally Cranial nerves: Yes Equal, round and reactive pupils present Cognition (Neuro): normal cognition Gait exam (Neuro): Normal gait present Extrem General: Yes no clubbing, cyanosis or edema Results Reviewed Results Reviewed: Laboratory Tests 09/29/24 02/08/25 02/08/25 15:49 10:41 10:45 WBC 7.0 Hgb 14.0 Hct 41.8 Plt Count 298 Sodium 141 Potassium 4.1 Creatinine 0.72 Estimated GFR > 60 Fasting Glucose 98 Calcium 9.1 D AST 23 ALT 22 Triglycerides 120 Cholesterol 227 H LDL Cholesterol, Calc 153 H HDL Cholesterol 50 25-OH Vitamin D Total 33.0 TSH 0.85 Urine pH 6.5 Ur Specific [place] 1.025 Urine Protein Negative Urine Protein (Auto) 0 Urine Glucose (UA) Negative Urine Blood Negative Urine Nitrite Negative Ur Leukocyte Esterase Small (1+) H Coding Level of Care Code Est Pt Prev Care [id number]([id number]) Diagnoses Annual physical exam Z00.00 Pure hypercholesterolemia E78.00 Mild intermittent asthma without complication J45.20 Asthma severity: mild Asthma persistence: intermittent Asthma complication type: uncomplicated Vitamin D deficiency E55.9 Renal calculi N20.0 Arthralgia of right temporomandibular joint M26.621 Anxiety F41.9 Additional Codes PHQ-9 - 02498 - PHQ-9 Billing: Yes ([id number]) Assessment & Plan Assessment & Plan (1) Annual physical exam: Code(s): Z00.00 - Encounter for general adult medical examination without abnormal findings Category: Medical Plan: Results of her labs done last week reviewed and discussed with patient She is up-to-date with her yearly gynecology exam and pap smear - goes to her technical assistance consultant in [place] (2) Pure hypercholesterolemia: Code(s): E78.00 - Pure hypercholesterolemia, unspecified Category: Medical Plan: Patient is advised that her total and LDL cholesterol levels have increased further from previous and are now much higher than recommended Reinforced low cholesterol diet - patient admits that she eats a lot of steaks and hardly eats any vegetables Will have her recheck her labs and fasting lipids in 1 year for follow up (3) Asthma: Code(s): J45.909 - Unspecified asthma, uncomplicated Category: Medical Qualifiers: Asthma severity: mild Asthma persistence: intermittent Asthma complication type: uncomplicated Qualified Code(s): J45.20 - Mild intermittent asthma, uncomplicated Plan: Patient states that her asthma has been well-controlled and she has not had to use her rescue inhaler(s) in a long time Continue Albuterol HFA 1 to 2 inhalations Q 6 hours PRN only when needed (4) Vitamin D deficiency: Code(s): E55.9 - Vitamin D deficiency, unspecified Category: Medical Plan: Continue OTC Vitamin-D 3 2000 units QD (5) Renal calculi: Code(s): N20.0 - Calculus of kidney Category: Medical Plan: Left renal US done in March 2022 revealed (+) stable nonobstructing 3 mm left lower pole renal stone, confirming findings seen previously on KUB done at the ER in February 2022 She's also had abdominal and pelvic CT done in April and June 2023 for other reasons and both scans showed the same tiny nonobstructing left lower pole renal stone Renal US done in September 2024 showed NO stones in both kidneys - previous stone likely passed without any incident Follow up with urology as scheduled (6) Arthralgia of right temporomandibular joint: Code(s): M26.621 - Arthralgia of right temporomandibular joint Category: Medical Plan: Her right TMJ pain is likely a result of her teeth-grinding when she is sleeping at night, which patient realizes she has been doing over the years States that she has a mouth guard that her dentist wants her to use regularly when she is sleeping at night but she finds it difficult to tolerate Have advised patient before that her frequent teeth grinding is likely a manifestation of her deep-seated anxiety issues States that she has been dealing with anxiety often while growing up but she never has had to take any medications for anxiety so far Patient states that her jaw has not been bothering her as much lately (7) Anxiety: Code(s): F41.9 - Anxiety disorder, unspecified Category: Medical Plan: We started patient previously on a trial of Doxepin 10 mg Q HS but it looks like she never did take it regularly and does not wish to take any other Rx at this time Plan To return in 1 year for her next annual physical examination Orders: Orders Complete Blood Count Auto Diff 1 Year D64.9 - Anemia, unspecified, Z00.00 - Encounter for general adult medical examination without abnormal findings Comprehensive [place]. Panel Fast 1 Year E78.00 - Pure hypercholesterolemia, unspecified, Z00.00 - Encounter for general adult medical examination without abnormal findings Lipid Panel 1 Year E78.00 - Pure hypercholesterolemia, unspecified, Z00.00 - Encounter for general adult medical examination without abnormal findings TSH reflex Free T4 1 Year E78.00 - Pure hypercholesterolemia, unspecified, Z00.00 - Encounter for general adult medical examination without abnormal findings UA CC w/rflx Micro + Cult 1 Year R30.0 - Dysuria, Z00.00 - Encounter for general adult medical examination without abnormal findings Vitamin D 25-OH Total 1 Year E55.9 - Vitamin D deficiency, unspecified, Z00.00 - Encounter for general adult medical examination without abnormal findings
[2025-02-15 17:04] VITALS: BP 130/60; TEMP 36.2; BMI 25.2
== END 2025-02-15 17:50 | disposition home or self-care (01) ==
LOC: HO.HMCH 16:54
PROVIDERS: PCP Internal Medicine; Visit Provider Internal Medicine
DX: Z00.00 Encounter for general adult medical examination without abnormal findings (principal); E78.00 Pure hypercholesterolemia, unspecified; J45.20 Mild intermittent asthma, uncomplicated; E55.9 Vitamin D deficiency, unspecified; N20.0 Calculus of kidney; M26.621 Arthralgia of right temporomandibular joint; F41.9 Anxiety disorder, unspecified

== ENCOUNTER → 2025-02-15 16:54 | Outpatient (BNVA) | payer OTHER, SELFPAY | PROVIDERS: PCP Internal Medicine; Visit Provider Internal Medicine | DX: Z00.00 Encounter for general adult medical examination without abnormal findings (principal); E78.00 Pure hypercholesterolemia, unspecified; J45.20 Mild intermittent asthma, uncomplicated; E55.9 Vitamin D deficiency, unspecified; N20.0 Calculus of kidney; M26.621 Arthralgia of right temporomandibular joint; F41.9 Anxiety disorder, unspecified | CPT/HCPCS: 96127 ==